=== PATIENT | female | born 1985 | race Caucasian/White ===

== ENCOUNTER 2019-05-31 11:00 | Outpatient (RCR) | payer OTHER, SELFPAY ==
--- NOTE | 2019-05-12 13:21 | PC.NURSE ---
IN 1100 OUT 1155 HISTORY: Pt. delivered at [facility] at 37 weeks. had no complications after delivery. Mother had no complications after delivery. Infant is now 18 days old. Infant appears to be well cared for. Infant has been seen by ICP as scheduled. Infant last seen by ICP at 2 weeks. Mother reports: has required nipple shield since for latching. Mother discharged with small amounts of supplementation, then discontinued when her milk was in. Infant continued to loose weight at 1 week appointment, ICP advised to supplement after each feeding. Mother has a pre and post weight at [facility], intake was 1.5 oz. Infant is sleepy at breast, infant requires a nipple shield for most feedings. Mother will put infant to breast, then supplement and pumps. Mother pumps 1.5-2 oz per session with double electric pump. Mother wishes: To have breastfeed without supplementation and shield. Currently at 6 wets per day and 4 yellow seedy stools per day. weight: 5#8 Discharge weight: 5#1 Last Weight: 5#8 at 2 weeks. Pre feeding weight: 2516 Post feeding weight: 2533 OBSERVATION: Mother attempts to breast in cradle, makes eager attempts to latch and is unable to draw nipple in. Suggested mother used shield for feeding. Reviewed positioning/alignment in cross cradle, holding breast in U hold and guided asymmetrical latch on. Discussed rational for each. was able to latch correctly with nipple shield. . nursed eagerly with steady draws and frequent swallowing noted for short bursts followed with long pausing. Reviewed signs of a correct latch, effective nursing and suck swallow ratio. Advised infant stimulation to keep infant awake and effectively nursing. He would respond to stimulation, infant had long sessions of the short chew suck with bursts of effective draws and swallowing. Discussed the difference of the two sucks and draws are to empty, the short chew maintains the latch with minimal milk transfer. Reviewed that infant was at breast for 35 minutes with more ineffective suckling ( 20+ minutes and waking) than effective (less than 5 minutes). Discussed several ways to increase infant's effectiveness at breast: to wake before feeding, entice suckling with 5-10 mls of bottle before putting to breast, and stimulation while feeding with breast compressions to keep milk flowing. Advised mother is not ready to discontinue supplementation nor nipple shield at this time. Suggested mother give another week and return for pre post evaluation of feeding. Mother will continue to pump after each feeding and limit time at breast to 20-25 minutes. PLAN: Mother will follow above feeding plan using techniques for deeper latch and keeping infant effectively feeding while at breast. Mother will call with further questions or concerns. Follow up visit/phone call scheduled for next . May 17 1099.
--- NOTE | 2019-05-17 10:30 | PC.NURSE ---
Called mother for status update. continues with sleepiness and poor nursing. has not made any progress with increasing effort with . Mother does not believe another apt at this time would change infant feeding status. She continues to put to breast, bottle feed and pump. Mother will call next week.
--- NOTE | 2019-05-31 12:10 | PC.NURSE ---
Pt seen on 05-31-2019 as a follow up visit. IN 1105 OUT 1210 HISTORY: Pt. / seen at 2 weeks for latch issues using the nipple shield and supplementing each feeding. Mother believes infant is more awake and nursing eagerly without shield for most feedings and feels may be ready to stop supplementation of EBM/formula. has been seen by ICP as scheduled. last seen by ICP on 05/23/2019. Mother reports: is eagerly latching most feedings without shield, nursing 15/30 minutes. Mother supplements 1.5-3 oz after of EBM/formula. Mother states she feels is not emptying the breast because he is a sleepy feeder and is anticipating the bottle. If mother does not put to breast he will take 4oz. Mother states each feeding is up to 1.5 hours with breast, supplementation and pumping. Mother wishes: To discontinue pumping and bottle feeding. Currently at 6+ wets per day and 3-4 yellow seedy stools per day. weight: 5#8 Last Weight: 05-23 7#0 Pre feeding weight: 3589 Post feeding weight: 3633 44 g or 1.5 oz. aprox. intake in 30 min. OBSERVATION: Mother is able to independently latch correctly. eagerly latches nursing with long draws and freq swallowing for the first 10 minutes. begins to slow, needing stimulation to keep nursing effectively, occasional swallowing is noted. Mother works with infant on both breasts, repeating the same. Large spit up noted, mother reports spits up freq, at least each feeding. Estimate of at least 15 mls of spit up noted. Mother reports this is not as vigorous feeding as most. Discussed with infant current feeding, he is not ready to discontinue the supplementation after each feeding. Infant intake was 1.5 oz, most of feeding is by supplementation and he will continue to require the calories for continued weight gain and satisfaction. Suggested mother allow to wake for feedings( feeding at least every 4 hours), to work at breast compressions when he slows to assist with increased milk flow which may assist infant with more vigorous suckling. Advised mother to stop with supplement once infant begins to slow and pull away from bottle. Infant again had a large amount of spit up after bottle feeding, of at least 10 mls. PLAN: Mother will follow above feeding plan using techniques for deeper latch, breast compressions to keep infant more vigorously nursing at breast. Mother will call with further questions or concerns.
== END 2019-06-30 10:45 | disposition home or self-care (01) ==
LOC: ANHOBOP 11:00
PROVIDERS: Visit Provider Pediatrics
DX: Z39.1 Encounter for care and examination of lactating mother (principal)
CPT/HCPCS: 99212; G0463

== ENCOUNTER 2020-05-14 14:26 | Outpatient (CLI) | payer OTHER, SELFPAY ==
[2020-05-14 15:12] LABS: Basophils Percent Auto 0.4 % (0.2-1.2); Eosinophils Absolute Auto 0.2 K/mm3 (0-0.3); Eosinophils Percent Auto 2.3 % (0-4.4); Hematocrit 35.9 % (37.0-47.0); Hemoglobin 12.4 g/dL (12.0-15.0); Immature Granulocyte Absolute 0.09 K/mm3 (0.00-0.031); Immature Granulocyte Percent A 0.9 % (0-0.5); Mean Corpuscular HGB Conc 34.5 g/dl (32-36); Mean Corpuscular Hemoglobin 29.7 pg (26-34); Mean Corpuscular Volume 86.1 fl (80-100); Mean Platelet Volume 9.1 fl (7.4-10.4); Monocytes Absolute Auto 0.4 K/mm3 (0.1-0.6); Monocytes Percent Auto 3.8 % (2.6-8.5); Neutrophils Absolute Auto 7.3 K/mm3 (1.3-6.7); Neutrophils Percent Auto 69.6 % (45.5-73.1); Platelet Count Result 349 k/mm3 (150-375); Red Blood Count 4.17 M/mm3 (4.2-5.4); Red Cell Distribution Width 12.7 % (11.5-14.5); White Blood Count 10.4 K/mm3 (4.5-10.0)
[2020-05-14 15:22] LABS: Hemoglobin A1C 5.2 % (<5.7)
[2020-05-14 16:05] LABS: HIV 1/2 Ab P24 Ag Result Negative (Negative)
[2020-05-14 17:08] LABS: Hepatitis C Virus Antibody Negative (Negative)
[2020-05-14 17:17] LABS: Hepatitis B Surface Antigen Negative (Negative); Rubella IgG Antibody 40.8 IU/ML
[2020-05-15 11:03] LABS: Rapid Plasma Reagin Non-Reactive (NonReactive)
== END 2020-05-14 14:27 | disposition home or self-care (01) ==
PROVIDERS: Visit Provider Obstetrics & Gynecology
DX: Z36.89 Encounter for other specified antenatal screening (principal); Z3A.00 Weeks of gestation of pregnancy not specified
CPT/HCPCS: 36415; 83036; 85025; 86592; 86703; 86762; 86803; 86850; 86900; 86901; 87340; G0432

== ENCOUNTER 2020-10-03 10:45 | Outpatient (CLI) | payer OTHER, SELFPAY ==
[2020-10-03 11:16] VITALS: BP 115/79; PULSE 98
[2020-10-03 11:22] VITALS: BP 115/79; PULSE 98
[2020-10-03 11:31] VITALS: BP 108/73; PULSE 97
[2020-10-03 11:32] LABS: Basophils Percent Auto 0.3 % (0.2-1.2); Eosinophils Absolute Auto 0.3 K/mm3 (0-0.3); Eosinophils Percent Auto 2.3 % (0-4.4); Hematocrit 33.6 % (37.0-47.0); Hemoglobin 11.1 g/dL (12.0-15.0); Immature Granulocyte Absolute 0.16 K/mm3 (0.00-0.031); Immature Granulocyte Percent A 1.3 % (0-0.5); Lymphocytes Absolute Auto 2.03 K/mm3 (0.9-3.2); Lymphocytes Percent Auto 16.9 % (18.3-44.2); Mean Corpuscular Hemoglobin 29.4 pg (26-34); Mean Corpuscular Volume 89.1 fl (80-100); Mean Platelet Volume 9.9 fl (7.4-10.4); Monocytes Absolute Auto 0.7 K/mm3 (0.1-0.6); Monocytes Percent Auto 5.8 % (2.6-8.5); Neutrophils Absolute Auto 8.8 K/mm3 (1.3-6.7); Neutrophils Percent Auto 73.4 % (45.5-73.1); Platelet Count Result 278 k/mm3 (150-375); Red Blood Count 3.77 M/mm3 (4.2-5.4); Red Cell Distribution Width 12.9 % (11.5-14.5)
[2020-10-03 11:34] LABS: Add Urine Microscopic? NO; Appearance Urine Clear (Clear); Bilirubin Urine Negative (Negative); Blood Urine Negative (Negative); Color Urine Yellow (Yellow); Glucose Urine UA Negative (Negative); Ketones Urine Negative (Negative); Leukocyte Esterase Ur Negative LEU/UL (NEGATIVE); Nitrate Urine Negative (Negative); Protein Urine Negative (Negative); Specific Grav Ur 1.013 (1.001-1.035); Urobilinogen Urine Negative mg/dL (<2.0)
[2020-10-03 11:39] LABS: Creatinine Urine 72.1 mg/dL; Total Protein Urine Random 14 mg/dL; Ur Ttl Prot Creatinine Ratio 0.19 mg/mg (0-0.20)
[2020-10-03 11:40] LABS: Alanine Aminotransferase 21 U/L (4-35); Albumin Level 3.5 g/dL (3.5-5.1); Alkaline Phosphatase 101 U/L (38-126); Anion Gap 6 mmol/L (8-16); Aspartate Amino Transferase 22 U/L (14-36); Bilirubin,Total < 0.1 mg/dL (0.2-1.3); Blood Urea Nitrogen 13 mg/dL (7-17); Carbon Dioxide 20 mmol/L (22-30); Chloride 109 mmol/L (98-107); Estimated Glomerular Filt Rate > 60; Glucose 86 mg/dL (65-105); Potassium 3.9 mmol/L (3.4-5.0); Sodium 135 mmol/L (137-145); Uric Acid 4.2 mg/dL (2.5-7.5)
[2020-10-03 11:46] VITALS: BP 108/62; PULSE 97
[2020-10-03 12:24] VITALS: BP 115/79
--- NOTE | 2020-10-03 12:38 | PC.NURSE ---
1202- called,read lab results and bp's. Orders received to discharge pt home with 24hr urine
== END 2020-10-03 12:15 | disposition home or self-care (01) ==
LOC: ANHOBOP 10:52 → ANHOBPP 10:52
PROVIDERS: Visit Provider Obstetrics & Gynecology
DX: O13.9 Gestational [pregnancy-induced] hypertension without significant proteinuria, unspecified trimester (principal); Z3A.00 Weeks of gestation of pregnancy not specified
CPT/HCPCS: 36415; 59025; 80053; 81003; 82570; 84156; 84550; 85025; 87086; 99199

== ENCOUNTER 2020-10-04 14:47 | Outpatient (CLI) | payer OTHER, SELFPAY ==
[2020-10-04 15:01] VITALS: BMI 36.6
[2020-10-04 16:00] LABS: Collection Time Urine 24 HOURS; Total Volume 24 Hour Urine 3500 ml
[2020-10-04 16:06] LABS: Patient Weight 200 Lbs; Specific Gravity Ur 1.015
[2020-10-04 16:31] LABS: Creatinine Clearance Urine 153.3 ml/min (75-125); Creatinine Urine 62.5 mg/dL; Total Protein Urine 24 Hr 455 mg/24hr (28-141); Total Protein Urine Random 13 mg/dL
== END 2020-10-04 14:48 | disposition home or self-care (01) ==
PROVIDERS: Visit Provider Obstetrics & Gynecology
DX: O13.9 Gestational [pregnancy-induced] hypertension without significant proteinuria, unspecified trimester (principal); Z3A.00 Weeks of gestation of pregnancy not specified
CPT/HCPCS: 81050; 82575; 84156

== ENCOUNTER 2020-10-05 14:38 | Observation (INO) | payer OTHER, SELFPAY ==
[2020-10-05] VITALS (7 sets, daily range): BP systolic 110–123; BP diastolic 71–86; PULSE 89–98; TEMP 36.7
[2020-10-05 15:23] LABS: Basophils Percent Auto 0.3 % (0.2-1.2); Eosinophils Absolute Auto 0.2 K/mm3 (0-0.3); Hematocrit 33.7 % (37.0-47.0); Hemoglobin 11.1 g/dL (12.0-15.0); Immature Granulocyte Absolute 0.19 K/mm3 (0.00-0.031); Immature Granulocyte Percent A 1.7 % (0-0.5); Lymphocytes Absolute Auto 2.19 K/mm3 (0.9-3.2); Lymphocytes Percent Auto 19.1 % (18.3-44.2); Mean Corpuscular HGB Conc 32.9 g/dl (32-36); Mean Corpuscular Hemoglobin 29.1 pg (26-34); Mean Corpuscular Volume 88.5 fl (80-100); Mean Platelet Volume 9.8 fl (7.4-10.4); Monocytes Absolute Auto 0.7 K/mm3 (0.1-0.6); Neutrophils Absolute Auto 8.1 K/mm3 (1.3-6.7); Neutrophils Percent Auto 70.9 % (45.5-73.1); Platelet Count Result 278 k/mm3 (150-375); Red Blood Count 3.81 M/mm3 (4.2-5.4); Red Cell Distribution Width 12.9 % (11.5-14.5); White Blood Count 11.5 K/mm3 (4.5-10.0)
[2020-10-05 15:35] LABS: Alanine Aminotransferase 20 U/L (4-35); Albumin Level 3.5 g/dL (3.5-5.1); Alkaline Phosphatase 104 U/L (38-126); Anion Gap 7 mmol/L (8-16); Aspartate Amino Transferase 22 U/L (14-36); Bilirubin,Total < 0.1 mg/dL (0.2-1.3); Blood Urea Nitrogen 13 mg/dL (7-17); Calcium 9.6 mg/dL (8.4-10.2); Carbon Dioxide 20 mmol/L (22-30); Chloride 109 mmol/L (98-107); Estimated Glomerular Filt Rate > 60; Glucose 91 mg/dL (65-105); Potassium 3.8 mmol/L (3.4-5.0); Sodium 136 mmol/L (137-145); Uric Acid 3.8 mg/dL (2.5-7.5)
[2020-10-05] MEDS: BETAMETHASONE SOD PHOS/ACETATE 30 MG/5 ML VIAL 12 MG IM (16:06)
--- NOTE | 2020-10-05 16:29 | PM.IMHP ---
H&P: HPI History of Present Illness Date/Time: 10/05/20 16:29 Chief Complaint: pre-eclampsia Narrative: Arlette is a 35yo at 32+ weeks with newly diagnosed PreE on 24 hour urine returned today. 455mg pro. Labs normal 2 days ago. BPs normal or mildly elevated. Denies ALVAREZ/BV/EP. Review of Systems Review of Systems: All systems reviewed & are unremarkable except as noted in HPI and below PMFSH Family History Family History Other No significant family history Social History Social History Smoking status: Never smoker Tobacco type: cigarettes Second hand tobacco smoke exposure: No Additional smoking assessment comments: Social Smoker - Nothing consistent Alcohol intake: never Substance use: never Gender identity (if verbalized by the patient): Female Spiritual care concerns: No Agree to blood products: Yes Meds Home Medications and Allergies Home Medications Medication Instructions Recorded Confirmed Type ibuprofen 600 mg PO Q6H PRN #60 tablet 04/24/19 Rx Allergies Allergy/AdvReac Type Severity Reaction Status Date / Time fexofenadine Allergy Severe Hives / Verified 11/05/18 16:08 Red Face Vital Signs Vital Signs - 24 hr 10/05/20 15:16 10/05/20 15:31 10/05/20 15:46 Pulse Rate 89 94 90 Blood Pressure 123/82 112/86 116/75 10/05/20 16:01 Pulse Rate 92 Blood Pressure 118/77 Exam Const: General: no acute distress Resp: Effort & Inspection: normal respiratory effort Auscultation: clear to auscultation bilaterally Cardio: Rate: regular rate Rhythm: regular rhythm GI: GI Palp: Yes Soft to palpation Extrem: General: normal to inspection H&P: Results Labs Labs: Short CBC 10/05/20 Range/Units 15:04 WBC 11.5 H (4.5-10.0) K/mm3 Hgb 11.1 L (12.0-15.0) g/dL Hct 33.7 L (37.0-47.0) % Plt Count 278 (150-375) k/mm3 BMP 10/05/20 15:04 Sodium 136 L Potassium 3.8 Chloride 109 H Carbon Dioxide 20 L BUN 13 Creatinine 0.60 L Glucose 91 Calcium 9.6 Liver Function 10/05/20 Range/Units 15:04 Total Bilirubin < 0.1 L (0.2-1.3) mg/dL AST 22 (14-36) U/L ALT 20 (4-35) U/L Alkaline Phosphatase 104 (38-126) U/L Albumin 3.5 (3.5-5.1) g/dL Assessment and Plan Additional Plan REassuring status- category 1. Celestone for FLM monitor pressures and symptoms. Repeat PIH labs in am If no features of severe PreE, home on bedrest tomorrow with plan to deliver at 37 or if indicated sooner.
--- NOTE | 2020-10-05 16:45 | PC.NURSE ---
Dr Phillips on unit, plan of care discussed. OK for patient to take her own insulin. Plans to monitor overnight.
--- NOTE | 2020-10-05 19:25 | PC.NURSE ---
Blood sugar called to Dr. Phillips. Will repeat. Pt did get Betamethasone today. Pt advised this can increase blood sugar.
[2020-10-05 19:28] LABS: Glucose Point of Care 182 mg/dl (65-105)
--- NOTE | 2020-10-05 19:45 | OBADM ---
This patient, Arlette Beck, admitted to the OB room OB Post 115 for observation. Patient/family oriented to hospital policies and general routines including ID bracelet, bed and alarms, visiting hours, pain management, procedures, bathroom and other care routines, personal items, smoking policy, room service/diet, and visiting hours. Patient/Family are encouraged to report perceived risks to care and to ask questions if they do not understand what they are told or what they should do.
[2020-10-05 21:12] LABS: Glucose Point of Care 131 mg/dl (65-105)
--- NOTE | 2020-10-05 23:24 | PC.NURSE ---
Pt states she is very tired and is hoping to sleep tonight. Plan of care discussed. Will do NST at 2030 with vital signs and pt instructed to call out if she gets up to void during night to optimize rest.
[2020-10-06] VITALS (16 sets, daily range): BP systolic 102–119; BP diastolic 66–77; PULSE 91–104; RESP 18; TEMP 36.6–36.9; BMI 36.6
[2020-10-06 05:40] LABS: Glucose Point of Care 105 mg/dl (65-105)
[2020-10-06 05:46] LABS: Hematocrit 35.7 % (37.0-47.0); Hemoglobin 11.7 g/dL (12.0-15.0); Mean Corpuscular HGB Conc 32.8 g/dl (32-36); Mean Corpuscular Volume 88.4 fl (80-100); Mean Platelet Volume 9.8 fl (7.4-10.4); Platelet Count Result 308 k/mm3 (150-375); Red Blood Count 4.04 M/mm3 (4.2-5.4); Red Cell Distribution Width 12.8 % (11.5-14.5); White Blood Count 15.7 K/mm3 (4.5-10.0)
[2020-10-06 06:02] LABS: Alanine Aminotransferase 19 U/L (4-35); Albumin Level 3.6 g/dL (3.5-5.1); Alkaline Phosphatase 94 U/L (38-126); Anion Gap 9 mmol/L (8-16); Aspartate Amino Transferase 21 U/L (14-36); Bilirubin,Total 0.2 mg/dL (0.2-1.3); Blood Urea Nitrogen 12 mg/dL (7-17); Calcium 9.5 mg/dL (8.4-10.2); Carbon Dioxide 21 mmol/L (22-30); Chloride 106 mmol/L (98-107); Estimated Glomerular Filt Rate > 60; Glucose 109 mg/dL (65-105); Potassium 4.2 mmol/L (3.4-5.0); Sodium 136 mmol/L (137-145); Uric Acid 4.4 mg/dL (2.5-7.5)
--- NOTE | 2020-10-06 08:11 | PC.NURSE ---
Dr. Phillips was in room and informed pt she is now considered to have preeclampsia. Discussed plan to keep pt today for 1600 dose of Celestone and may go home after that. Pt to monitor BP's at home daily and to call if SBP >160 or DBP > 105. Discussed blood sugars will be more elevated for the next few days due to the Celestone, but to call if BS is >200. - call MFM if it is during office hours. Pt will go home on bedrest except for showering and bathroom use. Pt is to stop working.
[2020-10-06] MEDS: INSULIN ASPART (*BKC) 100 UNITS/ML SUB-Q ×2 (09:00→12:50)
--- NOTE | 2020-10-06 09:36 | PM.OBPNLAB ---
Pain Control Date/time seen: 10/06/20 7125 Comments: mild ALVAREZ that has had for weeks, maybe allergies. BPs great-- all normal. No visual changes. Labs wnl. Sugars elevated moderately, but had celestone at 1600 yesterday, second dose today. Good FM. Status status: Category l Assessment and Plan Assessment: other (mild Pre E at 32+ weeks) Comments: reassuring status celestone #2 at 1600 stable for home on bedrest after second dose PreE precautions given Has twice weekly testing already scheduled with us and MFM. Pt aware BS will be more elevated short term.
--- NOTE | 2020-10-06 09:41 | PM.OBDSVD ---
DS: Admitting Diagnosis Admitting Diagnosis Admitting Diagnosis: PreEclampsia DS: Discharge Diagnosis Discharge Diagnosis (1) Mild preeclampsia: Qualifiers: Trimester: third trimester Qualified Code(s): O14.03 - Mild to moderate pre-eclampsia, third trimester Code(s): O14.00 - Mild to moderate pre-eclampsia, unspecified trimester Status: Acute OB - DS: Summary OB Procedures : NST, PIH Mgmt and Ultrasound OB Procedures Intrapartum: Other (none) OB Procedures: : None Status at Discharge Functional status at discharge: independent ambulation Time Spent with Patient Time attestation: Total time spent providing and/or coordinating discharge services: Time spent: Less than 30 minutes Exam Narrative: Exam Narrative: NAD abdomen soft, appropriately tender Ext non tender, 1+ edema DS: Data Data Completed and Pending Labs on day of discharge: Labs from last 24 hours 10/06/20 10/06/20 10/06/20 05:31 05:25 05:25 WBC 15.7 H RBC 4.04 L Hgb 11.7 L Hct 35.7 L MCV 88.4 MCH 29.0 MCHC 32.8 RDW 12.8 Plt Count 308 MPV 9.8 Immature Gran % (Auto) Neut % (Auto) Lymph % (Auto) [place] % (Auto) Eos % (Auto) Baso % (Auto) Lymph # (Auto) [place] # (Auto) Eos # (Auto) Baso # (Auto) Abs Immat Gran (auto) Absolute Neuts (auto) Absolute Nucleated RBC Nucleated RBC % Sodium 136 L Potassium 4.2 Chloride 106 Carbon Dioxide 21 L Anion Gap 9 BUN 12 Creatinine 0.70 Estim Creat Clear Calc Not Reportable Estimated GFR > 60 Glucose 109 H POC Capillary Glucose 105 Uric Acid 4.4 Calcium 9.5 Total Bilirubin 0.2 AST 21 ALT 19 Alkaline Phosphatase 94 Total Protein 7.0 Albumin 3.6 10/05/20 10/05/20 10/05/20 20:33 19:24 15:04 WBC RBC Hgb Hct MCV MCH MCHC RDW Plt Count MPV Immature Gran % (Auto) Neut % (Auto) Lymph % (Auto) [place] % (Auto) Eos % (Auto) Baso % (Auto) Lymph # (Auto) [place] # (Auto) Eos # (Auto) Baso # (Auto) Abs Immat Gran (auto) Absolute Neuts (auto) Absolute Nucleated RBC Nucleated RBC % Sodium 136 L Potassium 3.8 Chloride 109 H Carbon Dioxide 20 L Anion Gap 7 L BUN 13 Creatinine 0.60 L Estim Creat Clear Calc Not Reportable Estimated GFR > 60 Glucose 91 POC Capillary Glucose 131 H 182 H Uric Acid 3.8 Calcium 9.6 Total Bilirubin < 0.1 L AST 22 ALT 20 Alkaline Phosphatase 104 Total Protein 7.0 Albumin 3.5 10/05/20 15:04 WBC 11.5 H RBC 3.81 L Hgb 11.1 L Hct 33.7 L MCV 88.5 MCH 29.1 MCHC 32.9 RDW 12.9 Plt Count 278 MPV 9.8 Immature Gran % (Auto) 1.7 H Neut % (Auto) 70.9 Lymph % (Auto) 19.1 [place] % (Auto) 6.0 Eos % (Auto) 2.0 Baso % (Auto) 0.3 Lymph # (Auto) 2.19 [place] # (Auto) 0.7 H Eos # (Auto) 0.2 Baso # (Auto) 0.0 Abs Immat Gran (auto) 0.19 H Absolute Neuts (auto) 8.1 H Absolute Nucleated RBC 0.0 Nucleated RBC % 0.0 Sodium Potassium Chloride Carbon Dioxide Anion Gap BUN Creatinine Estim Creat Clear Calc Estimated GFR Glucose POC Capillary Glucose Uric Acid Calcium Total Bilirubin AST ALT Alkaline Phosphatase Total Protein Albumin Discharge Plan Discharge Attending physician on discharge: Lori Phillips Discharging Clinician: Lori Phillips Anticipated Discharge Date/Time: 10/06/20 16:00 Patient Disposition: Home, Self-Care Activity: other - see discharge instructions Diet: gestational diabetic Discharge Instructions: Modified bed rest, should stop working. Patient Instructions: Antibiotic Form Stand Alone Forms: General Discharge Information Follow-up/Referrals: Lori Phillips MD [Physician] - (3 days) Discharge Medications: Continued aspirin 81 mg tablet,delayed release (DR/EC) 16
[2020-10-06 10:10] LABS: Glucose Point of Care 149 mg/dl (65-105)
--- NOTE | 2020-10-06 10:52 | PHAR ---
The patient's home meds of Humalog Kwikpen and Levemir flextouch pen have been verified.
[2020-10-06 14:10] LABS: Glucose Point of Care 96 mg/dl (65-105)
[2020-10-06] MEDS: ACETAMINOPHEN 500 MG TABLET 1000 MG PO (15:02)
[2020-10-06] MEDS: BETAMETHASONE SOD PHOS/ACETATE 30 MG/5 ML VIAL 12 MG IM (16:03)
--- NOTE | 2020-10-06 16:14 | PC.NURSE ---
Pt waiting in room for her to come pick her up.
== END 2020-10-06 16:25 | disposition home or self-care (01) ==
PROVIDERS: Admitting Provider Obstetrics & Gynecology; Visit Provider Obstetrics & Gynecology
DX: O14.03 Mild to moderate pre-eclampsia, third trimester (principal); Z3A.32 32 weeks gestation of pregnancy
CPT/HCPCS: 36415; 59025; 80053; 82948; 84550; 85025; 85027; 96372; A9270; G0378; G0379; J0702; J1815

== ENCOUNTER 2020-10-08 16:11 | Observation (INO) | payer OTHER, SELFPAY ==
[2020-10-08 16:40] VITALS: BMI 36.6
[2020-10-08 17:04] VITALS: BP 121/72; PULSE 93
[2020-10-08 17:16] VITALS: BP 121/72; PULSE 95
[2020-10-08 17:31] VITALS: BP 113/63; PULSE 98
[2020-10-08 17:38] LABS: Fetal Fibronectin Negative
[2020-10-08 17:46] VITALS: BP 113/66; PULSE 91
[2020-10-08 18:00] VITALS: TEMP 36.6
[2020-10-08 18:01] VITALS: BP 120/72; PULSE 94
--- NOTE | 2020-10-23 13:39 | PM.OBTRLD ---
OB - Triage/Final Diagnosis Visit Information Comments/Additional reasons for admission: I have assessed the risk for this patient, Arlette E Suiter, and determined that she would benefit from observation care. Evaluation Laboratory results: Laboratory Tests 10/08/20 16:48 Fibronectin Negative Final Diagnosis (1) False labor: Code(s): O47.9 - False labor, unspecified Status: Acute
== END 2020-10-08 18:34 | disposition home or self-care (01) ==
PROVIDERS: Advanced Practice Midwife; Admitting Provider Obstetrics & Gynecology; Visit Provider Obstetrics & Gynecology
DX: O47.03 False labor before 37 completed weeks of gestation, third trimester (principal); Z3A.33 33 weeks gestation of pregnancy
CPT/HCPCS: 82731; G0378; G0379

== ENCOUNTER 2020-10-15 22:25 | Outpatient (CLI) | payer OTHER, SELFPAY ==
[2020-10-15 23:15] VITALS: BP 124/85; PULSE 102
--- NOTE | 2020-10-15 23:20 | OBADM ---
This patient, Arlette Mclaughlinr, admitted to the OB room 112 for HIP evaluation Patient/family oriented to hospital policies and general routines including ID bracelet, bed and alarms, visiting hours, pain management, procedures, bathroom and other care routines, personal items, smoking policy, room service/diet, and visiting hours.
[2020-10-15 23:30] VITALS: BP 100/58; PULSE 97
[2020-10-15 23:33] LABS: Basophils Percent Auto 0.3 % (0.2-1.2); Eosinophils Absolute Auto 0.3 K/mm3 (0-0.3); Eosinophils Percent Auto 2.6 % (0-4.4); Hematocrit 34.9 % (37.0-47.0); Hemoglobin 11.4 g/dL (12.0-15.0); Immature Granulocyte Absolute 0.12 K/mm3 (0.00-0.031); Immature Granulocyte Percent A 1.1 % (0-0.5); Lymphocytes Absolute Auto 2.97 K/mm3 (0.9-3.2); Lymphocytes Percent Auto 26.4 % (18.3-44.2); Mean Corpuscular HGB Conc 32.7 g/dl (32-36); Mean Corpuscular Hemoglobin 29.1 pg (26-34); Mean Platelet Volume 9.7 fl (7.4-10.4); Monocytes Absolute Auto 0.8 K/mm3 (0.1-0.6); Monocytes Percent Auto 6.9 % (2.6-8.5); Neutrophils Absolute Auto 7.1 K/mm3 (1.3-6.7); Neutrophils Percent Auto 62.7 % (45.5-73.1); Platelet Count Result 272 k/mm3 (150-375); Red Blood Count 3.92 M/mm3 (4.2-5.4); Red Cell Distribution Width 12.9 % (11.5-14.5); White Blood Count 11.2 K/mm3 (4.5-10.0)
[2020-10-15 23:41] LABS: Alanine Aminotransferase 19 U/L (4-35); Albumin Level 3.4 g/dL (3.5-5.1); Alkaline Phosphatase 122 U/L (38-126); Anion Gap 8 mmol/L (8-16); Aspartate Amino Transferase 21 U/L (14-36); Bilirubin,Total < 0.1 mg/dL (0.2-1.3); Blood Urea Nitrogen 13 mg/dL (7-17); Calcium 9.3 mg/dL (8.4-10.2); Carbon Dioxide 20 mmol/L (22-30); Chloride 106 mmol/L (98-107); Estimated Glomerular Filt Rate > 60; Glucose 88 mg/dL (65-105); Potassium 3.6 mmol/L (3.4-5.0); Sodium 134 mmol/L (137-145); Uric Acid 4.4 mg/dL (2.5-7.5)
[2020-10-16] VITALS: BP 102/59; PULSE 88
== END 2020-10-16 00:05 | disposition home or self-care (01) ==
LOC: ANHOBOP 23:06 → ANHOBPP 23:08
PROVIDERS: Obstetrics & Gynecology; Visit Provider Obstetrics & Gynecology
DX: O13.9 Gestational [pregnancy-induced] hypertension without significant proteinuria, unspecified trimester (principal); Z3A.00 Weeks of gestation of pregnancy not specified
CPT/HCPCS: 36415; 59025; 80053; 84550; 85025; 99199

== ENCOUNTER 2020-10-19 15:19 | Outpatient (RCR) | payer OTHER, SELFPAY ==
[2020-10-19 16:41] VITALS: BP 114/77; PULSE 100
== END 2020-11-07 08:15 | disposition home or self-care (01) ==
LOC: ANHOBOP 15:19
PROVIDERS: Visit Provider Obstetrics & Gynecology
DX: O26.893 Other specified pregnancy related conditions, third trimester (principal); Z3A.34 34 weeks gestation of pregnancy
CPT/HCPCS: 59025

== ENCOUNTER 2020-11-05 16:44 | Inpatient (IN) | payer OTHER, SELFPAY ==
[2020-11-05] VITALS (16 sets, daily range): BP systolic 116–137; BP diastolic 61–90; PULSE 89–110; RESP 18; TEMP 36.5–36.6; BMI 36.8
[2020-11-05 17:28] LABS: Basophils Percent Auto 0.3 % (0.2-1.2); Eosinophils Absolute Auto 0.3 K/mm3 (0-0.3); Eosinophils Percent Auto 2.3 % (0-4.4); Hematocrit 37.4 % (37.0-47.0); Hemoglobin 12.5 g/dL (12.0-15.0); Immature Granulocyte Absolute 0.19 K/mm3 (0.00-0.031); Immature Granulocyte Percent A 1.7 % (0-0.5); Lymphocytes Absolute Auto 2.72 K/mm3 (0.9-3.2); Lymphocytes Percent Auto 23.6 % (18.3-44.2); Mean Corpuscular HGB Conc 33.4 g/dl (32-36); Mean Corpuscular Hemoglobin 29.3 pg (26-34); Mean Corpuscular Volume 87.8 fl (80-100); Mean Platelet Volume 9.9 fl (7.4-10.4); Monocytes Absolute Auto 0.7 K/mm3 (0.1-0.6); Monocytes Percent Auto 5.9 % (2.6-8.5); Neutrophils Absolute Auto 7.6 K/mm3 (1.3-6.7); Neutrophils Percent Auto 66.2 % (45.5-73.1); Platelet Count Result 321 k/mm3 (150-375); Red Blood Count 4.26 M/mm3 (4.2-5.4); Red Cell Distribution Width 13.3 % (11.5-14.5); White Blood Count 11.5 K/mm3 (4.5-10.0)
[2020-11-05 17:28] LABS: Glucose Point of Care 91 mg/dl (65-105)
--- NOTE | 2020-11-05 17:42 | P.HP_ITS ---
H&P: HPI History of Present Illness Date/Time: 11/05/20 17:42 Chief Complaint: late decels on NST Narrative: Arlette is a 35yo at 37.0 for IOL due to repetitive late decels on NST at [facility] today. GDMA2, sugars managed by [facility]. Good FM, now NST reactive, category 1. Review of Systems Review of Systems: All systems reviewed & are unremarkable except as noted in HPI and below PMFSH Family History Family History Other No significant family history Social History Social History Smoking status: Never smoker Tobacco type: cigarettes Second hand tobacco smoke exposure: No Additional smoking assessment comments: Social Smoker - Nothing consistent Alcohol intake: never Substance use: never Gender identity (if verbalized by the patient): Female Spiritual care concerns: No Agree to blood products: Yes Meds Home Medications and Allergies Home Medications Medication Instructions Recorded Confirmed Type Levemir FlexTouch U-100 Insuln 10 unit SUBCUT QAM 10/05/20 10/26/20 History Levemir FlexTouch U-100 Insuln 52 unit SUBCUT HS 10/05/20 10/26/20 History aspirin 162 mg PO DAILY 10/05/20 10/26/20 History insulin lispro [Humalog KwikPen See Rx Instructions .ROUTE .COMPLEX 10/05/20 10/26/20 History Insulin] loratadine [Claritin] 10 mg PO DAILY 10/05/20 10/26/20 History Allergies Allergy/AdvReac Type Severity Reaction Status Date / Time fexofenadine Allergy Severe Hives / Verified 11/05/18 16:08 Red Face Vital Signs Vital Signs - 24 hr 11/05/20 17:10 11/05/20 17:30 Pulse Rate 99 96 Blood Pressure 131/90 137/86 Exam Const: General: no acute distress Resp: Effort & Inspection: normal respiratory effort Auscultation: clear to auscultation bilaterally Cardio: Rate: regular rate Rhythm: regular rhythm GI: GI Palp: Yes Soft to palpation Extrem: General: normal to inspection H&P: Results Labs Labs: Short CBC 11/05/20 Range/Units 17:11 WBC 11.5 H (4.5-10.0) K/mm3 Hgb 12.5 (12.0-15.0) g/dL Hct 37.4 (37.0-47.0) % Plt Count 321 (150-375) k/mm3 Assessment and Plan Assessment and plan (1) GDM, class A2: Code(s): O24.419 - Gestational diabetes mellitus in , unspecified control Status: Acute (2) Late deceleration of heart rate: Code(s): O36.8390 - Maternal care for abnormalities of the heart rate or rhythm, unspecified trimester, not applicable or unspecified Status: Acute Additional Plan induction, medical for decels, GDMA2 cervidil, cervix 1cm category 1 FHT currently. Pt aware increased chance baby won't tolerate labor, T and S done.
--- NOTE | 2020-11-05 18:17 | LDADM ---
This patient, Arlette Beck, was admitted to Labor/Delivery/Recovery 108 on 11/05/20 at 16:44. Plans for labor, pain management and were discussed with patient. Patient/family oriented to hospital policies and general routines including ID bracelet, bed and alarms, visiting hours, pain management, procedures, bathroom and other care routines, personal items, smoking policy, room service/diet and guest tray routines, security routines, and visiting hours. Patient/Family are encouraged to report perceived risks to care and to ask questions if they do not understand what they are told or what they should do. See OBIX for further documentation.
[2020-11-05] MEDS: DINOPROSTONE 10 MG VAG INSERT VAGINAL (18:35)
--- NOTE | 2020-11-05 18:36 | WPDANESEPP ---
Anes - Eval Pre Procedure Procedure: Labor epidural Date/Time: 11/05/20 18:36 Surgeon: Jacqueline Preop Diagnosis: Abd pain with contractions Pre Op Diagnosis: IOL Patient Data Age: 35 Gender: F Height: 1.57 m Weight: 91.36 kg Last Vital Signs Pulse 94 11/05/20 18:15 BP 119/79 11/05/20 18:15 Allergies Allergy/AdvReac Type Severity Reaction Status Date / Time fexofenadine Allergy Severe Hives / Verified 11/05/18 16:08 Red Face Home Medications Medication Instructions Recorded Confirmed Type Levemir FlexTouch U-100 Insuln 10 unit SUBCUT QAM 10/05/20 10/26/20 History Levemir FlexTouch U-100 Insuln 52 unit SUBCUT HS 10/05/20 10/26/20 History aspirin 162 mg PO DAILY 10/05/20 10/26/20 History insulin lispro [Humalog KwikPen See Rx Instructions .ROUTE .COMPLEX 10/05/20 10/26/20 History Insulin] loratadine [Claritin] 10 mg PO DAILY 10/05/20 10/26/20 History Laboratory Tests 11/05/20 11/05/20 11/05/20 17:11 17:11 17:11 WBC 11.5 K/mm3 H K/mm3 (4.5-10.0) RBC 4.26 M/mm3 M/mm3 (4.2-5.4) Hgb 12.5 g/dL g/dL (12.0-15.0) Hct 37.4 % % (37.0-47.0) MCV 87.8 fl fl (80-100) MCH 29.3 pg pg (26-34) MCHC 33.4 g/dl g/dl (32-36) RDW 13.3 % % (11.5-14.5) Plt Count 321 k/mm3 k/mm3 (150-375) MPV 9.9 fl fl (7.4-10.4) Immature Gran % (Auto) 1.7 % H % (0-0.5) Neut % (Auto) 66.2 % % (45.5-73.1) Lymph % (Auto) 23.6 % % (18.3-44.2) [place] % (Auto) 5.9 % % (2.6-8.5) Eos % (Auto) 2.3 % % (0-4.4) Baso % (Auto) 0.3 % % (0.2-1.2) Lymph # (Auto) 2.72 K/mm3 K/mm3 (0.9-3.2) [place] # (Auto) 0.7 K/mm3 H K/mm3 (0.1-0.6) Eos # (Auto) 0.3 K/mm3 K/mm3 (0-0.3) Baso # (Auto) 0.0 K/mm3 K/mm3 (0.0-0.1) Abs Immat Gran (auto) 0.19 K/mm3 H K/mm3 (0.00-0.031) Absolute Neuts (auto) 7.6 K/mm3 H K/mm3 (1.3-6.7) Absolute Nucleated RBC 0.0 K/mm3 K/mm3 (0.0-0.012) Nucleated RBC % 0.0 % % (0.0-0.2) POC Capillary Glucose RPR Pending Blood Type O Positive Antibody Screen Negative 11/05/20 17:23 WBC RBC Hgb Hct MCV MCH MCHC RDW Plt Count MPV Immature Gran % (Auto) Neut % (Auto) Lymph % (Auto) [place] % (Auto) Eos % (Auto) Baso % (Auto) Lymph # (Auto) [place] # (Auto) Eos # (Auto) Baso # (Auto) Abs Immat Gran (auto) Absolute Neuts (auto) Absolute Nucleated RBC Nucleated RBC % POC Capillary Glucose 91 mg/dl mg/dl (65-105) RPR Blood Type Antibody Screen Patient hx anesthesia problems: none Family hx anesthesia problems: none 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 Obesity Smoker Family History Family History Other No significant family history Social History Social History Smoking status: Former smoker Tobacco type: cigarettes Second hand tobacco smoke exposure: No Additional smoking assessment comments: Social Smoker - Nothing consistent Alcohol intake: never Substance use: never Gender identity (if verbalized by the patient): Female Spiritual care concerns: No Agree to blood products: Yes Exam Day of Procedure 11/05/20 18:36 Patient weight: obese Airway: Mallampati scale class II Neurological: alert and oriented
[2020-11-05] MEDS: INSULIN ASPART (*BKC) 100 UNITS/ML SUB-Q (19:40)
[2020-11-05 19:48] LABS: Glucose Point of Care 82 mg/dl (65-105)
[2020-11-05] MEDS: INSULIN DETEMIR 100 UNITS/ML 40 UNITS SUB-Q (20:54)
[2020-11-05 21:01] LABS: Glucose Point of Care 135 mg/dl (65-105)
[2020-11-05] MEDS: ACETAMINOPHEN 500 MG TABLET 1000 MG PO (22:01)
[2020-11-06] VITALS (94 sets, daily range): BP systolic 97–154; BP diastolic 51–96; PULSE 54–120; RESP 16–18; TEMP 36.3–36.9; O2SAT 83–100
[2020-11-06] MEDS: fentaNYL CITRATE INJ (*CRX) 100 MCG/2 ML VIAL 50 MCG IV PUSH ×2 (02:24→03:33)
[2020-11-06] MEDS: LACTATED RINGERS 1,000 ML 125 ML IV CONT ×2 (03:28→04:18)
[2020-11-06 04:36] LABS: Glucose Point of Care 94 mg/dl (65-105)
[2020-11-06 05:38] LABS: Glucose Point of Care 95 mg/dl (65-105)
--- NOTE | 2020-11-06 09:08 | P.PCNOB_ITS ---
OB - Delivery Note Procedure Delivery date: 11/06/20 Procedure: events: Gestational Diabetes, Labor Induction and Polyhydramnios Induction method: AROM and per cervidil protocol Delivery monitor: external FHT and external uterine Route of delivery: Episiotomy description: None Laceration Description: Perineal - 2nd Degree Delivery repair: vicryl Quantitative Blood Loss (ml): 400 Anesthesia type: Epidural Disposition: floor Narrative: With adequate expulsive efforts by the mother, the baby's head was delivered OA with copious amounts of fluid. The baby's anterior shoulder was de livered under the pubic symphysis without difficulty. The posterior shoulder and the rest of the baby delivered without difficulty. The infant was placed on the mothers chest and suctioned and stimulated. The cord was clamped and cut after 30 seconds. Mother and baby both stable. Baby Date of : 11/06/20 Time of : 08:51 Weeks of gestation at delivery: 37 gender: Male Weight (pounds): 6 Weight (ounces): 12 presentation: vertex Placenta delivery description: Spontaneous cord vessel description: 3 Vessels, Nuchal Cord and Delayed Cord Clamping score one minute: 7 score five minutes: 8
[2020-11-06] MEDS: OXYTOCIN 30 UNITS/NS 500 ML 30 UNITS/500 ML BAG 125 UNITS IV CONT (09:30)
[2020-11-06 10:05] LABS: Rapid Plasma Reagin Non-Reactive (NonReactive)
[2020-11-06] MEDS: BENZOCAINE 20% AER SPR (*SP) 56 GM CAN 1 SPRAY TOPICAL (11:04)
[2020-11-06] MEDS: WITCH HAZEL 40 PADS 1 PAD TOPICAL (11:04)
[2020-11-06] MEDS: IBUPROFEN 600 MG TABLET PO ×3 (11:05→23:25)
--- NOTE | 2020-11-06 11:33 | OBPPTRN ---
Patient transferred to post room # 282 via wheelchair. Support person present. Oriented to unit, room, information board, rooming in, admission packet and security measures. Patient verbalizes understanding. PT received instructions per one to one discussion, mom baby care guide and demonstrations and will receive such instructions per shift. Pt has no barriers to learning identified at this time and PT and spouse both recipients of instructions.
[2020-11-06] MEDS: ACETAMINOPHEN 325 MG TABLET 650 MG PO (14:38)
--- NOTE | 2020-11-06 15:25 | PC.NURSE ---
Mother called out for assist with feeding. Mother reported first two feeding infant was eager. Mother had issues latching with first child. First child was also 37 weeks, reviewed early infants and establishing . Infant is able to freely thrust tongue past gum ridge and flange both lips. Skin is intact on both nipples, no redness and bruising noted. Reviewed feeding cues, frequencies, duration of feedings, feeding elimination flow sheet, and signs of adequate intake. Demonstrated stimulation techniques to wake for feeding. Assisted with to breast. Reviewed positioning/alignment in football, holding breast in ?C? hold and guided asymmetrical latch on. Discussed rational for each. Infant able to latch correctly. nursed eagerly, with steady draws and frequent swallowing noted. Suggested mother stimulate while feeding to increase stimulate, increase intake and to assist with maintaining deep latch. Reviewed signs of a correct latch, effective nursing and suck swallow ratio. was able to maintain latch without discomfort to mother. Demonstrated how to adjust latch more deeply while feeding. Nipple care reviewed of lanolin after feedings, warm compresses as needed. Instructed mother to call out for RN assistance if she is unable to latch infant for feeding or she has discomfort with nursing.
[2020-11-06] MEDS: DOCUSATE SODIUM 100 MG CAPSULE PO (17:22)
[2020-11-06] MEDS: POLYSACCHARIDE IRON COMPLEX 150 MG CAPSULE PO (17:22)
[2020-11-06] MEDS: LANOLIN (LANSINOH) 7.5 GM CREAM 1 APPLIC TOPICAL (17:24)
[2020-11-07] VITALS (7 sets, daily range): BP systolic 105–120; BP diastolic 59–79; PULSE 88–98; RESP 16–18; TEMP 36.6–37.1; O2SAT 97–98
[2020-11-07] MEDS: ACETAMINOPHEN 325 MG TABLET 650 MG PO ×5 (01:45→23:57)
[2020-11-07 05:59] LABS: Hematocrit 33.1 % (37.0-47.0); Hemoglobin 10.8 g/dL (12.0-15.0)
--- NOTE | 2020-11-07 07:37 | PM.OBPNVD ---
OB - PN: Subj Subjective Date/time seen: 11/07/20 07:37 OB - PN: Obj Data Labs CBC & Chem 7: 11/07/20 05:19 Labs: Laboratory Results - last 24 hr 11/05/20 11/07/20 17:11 05:19 Hgb 10.8 L Hct 33.1 L RPR Non-reactive OB - PN A/P Plan day: 1 Plan: routine care Time Spent With Patient Time: Total time spent is greater than 50% in coordination of care (as documented) at patient's floor/unit and/or counseling patient: Review of Systems Review of Systems: All systems reviewed & are unremarkable except as noted in HPI and below Exam Const: General: cooperative Nutritional Appearance: average body habitus Limitations: no limitations
--- NOTE | 2020-11-07 07:45 | PC.NURSE ---
PT introductions made and plan of care discussed per post , pain management, breast feeding and supplementing, daily care activities. PT verbalized understanding of such care. PT receiving instructions per shift via one to one discussion, mom baby care guide and demonstration. PT and spouse both recipients of such instructions and no barriers to learning identified.
--- NOTE | 2020-11-07 07:49 | WPDANLDPN2 ---
Anes-Prog Note L&D Date/Time: 11/07/20 07:49 Comfortable throughout: labor and delivery Neuraxial method: epidural Epidural/Spinal procedure site: clean & non-tender Neuro status: Neuro function grossly intact. Cardiovascular status: normal Respiratory status: normal Airway patency: baseline Mental status: baseline Post-Op hydration status: normal Vital Signs: Last Vital Signs Temp 36.6 C 11/07/20 04:30 Pulse 96 11/07/20 04:30 Resp 18 11/07/20 04:30 BP 107/66 11/07/20 04:30 Pulse Ox 97 11/06/20 17:00 Pain score (VAS): 0 I/O: Intake & Output 11/06/20 11/06/20 11/07/20 15:59 23:59 07:59 Intake Total 745 736 3879 Output Total 700 2800 Balance 700 100 -800 Post-procedural complaints: none Patient feedback: Patient satisfied with anesthetic care.
[2020-11-07] MEDS: IBUPROFEN 600 MG TABLET PO ×3 (09:19→23:57)
[2020-11-07] MEDS: MULTIVIT/MIN/PREN/FOL AC/IRON TABLET 1 TAB PO (09:19)
[2020-11-07] MEDS: DOCUSATE SODIUM 100 MG CAPSULE PO ×2 (09:19→17:36)
--- NOTE | 2020-11-07 14:20 | PC.NURSE ---
Mother called out for assist with feeding, reporting tenderness during entire feeding. Skin is intact on both nipples no redness noted. Mother is using lanolin and gel pads. Reviewed infant feeding cues, frequencies, duration of feedings, feeding elimination flow sheet, and signs of adequate intake. Demonstrated stimulation techniques to wake for feeding. Assisted with to breast. Reviewed positioning/alignment in football, holding breast in ?C? hold and guided asymmetrical latch on. Discussed rational for each. Infant able to latch deeply with bottom lip rolled in. Demonstrated how to roll lip out while feeding. Infant nursed eagerly, with steady draws and occasional swallowing noted followed with long pausing. Suggested mother stimulate while feeding to increase stimulate, increase intake and to assist with maintaining deep latch. Reviewed signs of a correct latch, effective nursing and suck swallow ratio. Infant would slip to shallow latch, mother reports tenderness. Demonstrated how to adjust latch more deeply while feeding. Mother reports she can feel change in latch and has no tenderness. Mother questioned if she needed to continue to supplement after each feeding. Suggested mother offer supplement if infant does not appear satisfied after 20 minutes of nursing. Instructed mother to call out for RN assistance if she is unable to latch for feeding or she has discomfort with nursing.
[2020-11-08 04:00] VITALS: BP 125/75; PULSE 94; RESP 18; TEMP 37.1
[2020-11-08] MEDS: ACETAMINOPHEN 325 MG TABLET 650 MG PO ×2 (05:34→12:11)
[2020-11-08] MEDS: IBUPROFEN 600 MG TABLET PO ×2 (05:39→12:11)
--- NOTE | 2020-11-08 08:03 | PM.OBPNVD ---
OB - PN: Subj Subjective Date/time seen: 11/08/20 08:03 Patient comments: no complaints baby status: doing well OB - PN: Obj Data Labs CBC & Chem 7: 11/07/20 05:19 OB - PN A/P Plan day: 2 Plan: routine care and discharge home (F/U in 1 week for bp check) Comments: Plan 2 hour gtt at aprox 2 months post . Pt aware. Time Spent With Patient Time: Total time spent is greater than 50% in coordination of care (as documented) at patient's floor/unit and/or counseling patient: Time with patient: less than 15 minutes Review of Systems Review of Systems: All systems reviewed & are unremarkable except as noted in HPI and below Exam Narrative: Fundus firm and vaginal flow controlled. No lower ext redness, warmth, or edema. Negative homans. Denies h/a, v/d or e/p. Reflexes normal. Const: General: comfortable Chest: Breast/axilla inspection: normal inspection of the breasts Resp: Effort & Inspection: normal respiratory effort Cardio: Rate: regular rate GI: GI Palp: Yes Soft to palpation Psych: Appearance: grossly normal Affect: normal affect Attitude: cooperative Thought content: Yes Normal thought content present Judgement: Good judgement present (Psych)
--- NOTE | 2020-11-08 08:04 | PM.OBDSVD ---
DS: Admitting Diagnosis Admitting Diagnosis Induction of labor OB - DS: Summary OB Procedures : None OB Procedures Intrapartum: Spontaneous Vag Delivery OB Procedures: : None Time Spent with Patient Time attestation: Total time spent providing and/or coordinating discharge services: DS: Data Data Completed and Pending Pending studies at discharge: Pending at discharge 11/06/20 08:56 Surgical [PTH] Routine Discharge Plan Discharge Attending physician on discharge: Lori Phillips Discharging Clinician: Astrid Boss Patient Disposition: Home, Self-Care Activity: pelvic rest Diet: as tolerated Patient Instructions: Antibiotic Form Stand Alone Forms: General Discharge Information Follow-up/Referrals: Lori Phillips MD [Physician] - Discharge Medications: Discontinued aspirin 81 mg tablet,delayed release (DR/EC) 162 mg PO DAILY RF: 0 loratadine [Claritin] 10 mg Tablet 10 mg PO DAILY RF: 0 insulin lispro [Humalog KwikPen Insulin] 100 unit/mL insulin pen See Rx Instructions .ROUTE .COMPLEX RF: 0 Levemir FlexTouch U-100 Insuln 100 unit/mL (3 mL) insulin pen 10 unit SUBCUT QAM RF: 0 Levemir FlexTouch U-100 Insuln 100 unit/mL (3 mL) insulin pen 52 unit SUBCUT HS RF: 0 Date of admission: 11/05/20 16:44 Primary Care Provider: PHYSICIAN,[facility] [employer] Admitting Provider: Lori Phillips Attending physician on admission: Lori Phillips Condition: Stable
[2020-11-08 08:55] VITALS: BP 128/86; PULSE 87; RESP 18; TEMP 37.3; O2SAT 97
[2020-11-08] MEDS: MULTIVIT/MIN/PREN/FOL AC/IRON TABLET 1 TAB PO (12:12)
--- NOTE | 2020-11-08 20:29 | PC.NURSE ---
1210 discharge papers reviewed with parents; they stated they read through the papers.
--- NOTE | 2020-11-08 20:34 | PC.NURSE ---
Pt's outcomes should be documented at the time of her discharge today at [id number]
[2020-11-10 10:49] VITALS: BP 123/79; PULSE 88; RESP 20; TEMP 37.3; O2SAT 100
== END 2020-11-08 12:22 | disposition home or self-care (01) | DRG 807 ==
LOC: ANHLDR 17:09 → ANHOB2 11-06 11:35
PROVIDERS: Admitting Provider Obstetrics & Gynecology; Visit Provider Obstetrics & Gynecology
DX: O36.8330 Maternal care for abnormalities of the fetal heart rate or rhythm, third trimester, not applicable or unspecified (principal); Z37.0 Single live birth; Z3A.37 37 weeks gestation of pregnancy; O24.429 Gestational diabetes mellitus in childbirth, unspecified control; O99.214 Obesity complicating childbirth; E66.9 Obesity, unspecified; O40.3XX0 Polyhydramnios, third trimester, not applicable or unspecified; O70.1 Second degree perineal laceration during delivery; O13.4 Gestational [pregnancy-induced] hypertension without significant proteinuria, complicating childbirth
CPT/HCPCS: 36415; 82948; 85014; 85018; 85025; 86592; 86850; 86900; 86901; 88307; A9270; J1815; J2590; J2795; J3010; J7120

== ENCOUNTER 2021-09-09 11:15 | Emergency (ER) | payer OTHER, SELFPAY ==
[2021-09-09 11:25] VITALS: BP 128/93; PULSE 94; RESP 20; TEMP 36.4; O2SAT 100
--- NOTE | 2021-09-09 11:29 | ED.ALLEREA ---
HPI - Allergic Reaction General Chief complaint: Allergic Reaction Stated complaint: allergic reaction to insect sting Time Seen by Provider: 09/09/21 11:20 Source: patient Mode of arrival: ambulatory Limitations: no limitations History of Present Illness HPI narrative: 36-year-old female presents with complaint of bee sting to left hand. Reports left hand swelling with hives traveling up left arm into neck and chest. Denies shortness of breath, no difficulty breathing. No history of similar allergic reaction to bee sting. Reports that she has bases and has her own honey. Has been stung before with no complications. Did take 50 mg of Benadryl prior to arrival. Ambulatory with steady gait. Reports that she is feeling nervous. All systems reviewed and negative except as noted above. Related Data Home Medications Medication Instructions Recorded Confirmed vits no.126-ferrous fum 1 tablet PO DAILY 09/09/21 09/09/21 28 mg iron-folic acid 800 mcg tablet (Classic ) Allergies Allergy/AdvReac Type Severity Reaction Status Date / Time fexofenadine Allergy Severe Hives / Verified 09/09/21 11:30 Red Face bee pollen AdvReac Intermediate Hives Verified 09/09/21 14:05 Review of Systems Review of Systems: CONSTITUTIONAL: Denies fever, chills, or sweats. EYES: Denies visual changes, redness, or discharge. ENT: Denies rhinorrhea, congestion, sore throat, or otalgia. CARDIOVASCULAR: Denies chest pain, palpitations, or edema. RESPIRATORY: Denies cough or dyspnea. GASTROINTESTINAL: Denies abdominal pain, nausea, vomiting, or diarrhea. GENITOURINARY: Denies dysuria or hematuria. SKIN: Denies rash or itching. Hives to left arm neck and chest, swelling and erythema to left hand. MUSCULOSKELETAL: Denies back pain, joint pain, or myalgia. NEUROLOGIC: Denies headache, numbness, or weakness. PSYCHIATRIC: Denies anxiety or depression. All other systems reviewed are negative, except as documented in HPI. 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 There is no relevant family history pertinent to the presenting complaint. Exam Narrative: GENERAL: This is a well-nourished, well-developed patient, in no apparent distress. HEAD: normocephalic, atraumatic. EYES: PERRL. Sclera clear/white. Vision is grossly intact. EARS: External ears normal NOSE: External nose normal NECK: Neck supple, non-tender without lymphadenopathy, masses or thyromegaly. CARDIOVASCULAR: Regular rate and rhythm without murmurs, gallops, or rubs. RESPIRATORY: Clear to auscultation. Breath sounds equal bilaterally. No wheezes, rales, or rhonchi. SKIN: warm, Dry, intact with no suspicious lesions, good texture and turgor. Erythema and swelling to left hand. Erythematous hives to the left arm chest and neck. NEURO: awake, alert, and oriented to person, place and time. There were no obvious focal neurologic abnormalities. EXTREMITIES: Normal range of motion to all extremities. Course Course Level of Care: Express Care Visit Vital Signs Vital signs: Vital Signs Temperature 36.4 C 09/09/21 11:25 Pulse Rate 94 09/09/21 11:25 Respiratory Rate 20 09/09/21 11:25 Blood Pressure 128/93 H 09/09/21 11:25 Pulse Oxi
[2021-09-09] MEDS: FAMOTIDINE 20 MG TABLET 40 MG PO (11:30)
== END 2021-09-09 11:58 | disposition home or self-care (01) ==
PROVIDERS: Emergency Provider Nurse Practitioner Family
DX: T63.441A Toxic effect of venom of bees, accidental (unintentional), initial encounter (principal); E66.9 Obesity, unspecified; Z68.27 Body mass index [BMI] 27.0-27.9, adult
CPT/HCPCS: 96372; 99213; A9270; G0463; J2930

== ENCOUNTER 2023-05-18 16:39 | Emergency (ER) | payer OTHER, SELFPAY ==
--- NOTE | 2023-05-18 16:45 | ED.URI ---
HPI - URI/Sore Throat General Chief Complaint: Upper Respiratory Infection Stated Complaint: Sore Throat, Headache, Bodyache Time Seen by Provider: 05/18/23 16:42 Source: patient Mode of arrival: ambulatory Limitations: no limitations History of Present Illness HPI Narrative: Arlette is a 37-year-old female patient presenting to the clinic today with complaints of sore throat, headache, nausea, feeling feverish, and body aches since last night. States she does have a slight cough. MD elicited complaint: sore throat and nasal congestion Related Data Home Medications Medication Instructions Recorded Confirmed epinephrine 0.3 mg/0.3 mL 0.3 ml subcut PRN PRN Anaphylaxis 05/18/23 05/18/23 injection, auto-injector escitalopram oxalate 5 mg tablet 5 mg PO DAILY 05/18/23 05/18/23 Allergies Allergy/AdvReac Type Severity Reaction Status Date / Time bee pollen Allergy Severe Anaphylaxis Verified 05/18/23 18:18 fexofenadine AdvReac Intermediate Redness of Verified 05/18/23 18:18 Skin Review of Systems Review of Systems: Pertinent positives per HPI. Patient denies any rash, visual changes, dizziness, shortness of breath, chest pain, palpitations, vomiting, diarrhea, constipation, abdominal pain, or any urinary issues. 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 Obesity Smoker Family History Family History Other No significant family history Social History Social History Smoking status: Former smoker Tobacco type: cigarettes Second hand tobacco smoke exposure: No Additional smoking assessment comments: Social Smoker - Nothing consistent Alcohol intake: never Substance use: never Living arrangements: with family Occupation/Education: occupation Gender identity (if verbalized by the patient): Female Spiritual care concerns: No Agree to blood products: Yes Comments At the time of my signature, I reviewed and agree with the nursing past medical, surgical, social, and family history. There is no relevant family history pertinent to the patient complaint. Exam Narrative: General: Well-developed, well nourished, in no apparent distress Head: Normocephalic, atraumatic Eyes: Pupils equally round and reactive to light bilaterally, EOM intact, sclera and conjunctive clear, no discharge, lids normal Ears: TMs intact and congested, ear canals clear, no drainage, grossly hearing normal. Nose: Nares patent,clear nasal discharge, no inflammation, no sinus tenderness. Mouth: Oral pharynx red without lesions or masses, good dentition, MMM. Neck: Supple, trachea midline, mild enlargement of anterior cervical nodes, no thyroid masses or goiter palpable. Cardio: Regular rate and rhythm, s1 and s2 normal, no murmur appreciated. Resp: Clear to auscultation bilaterally, no rhonchi, rales, wheezing or rubs Course Course Emergency Course: Portions of this record may have been created with voice recognition software. Level of Care: Express Care Visit Vital Signs Vital signs: Vital signs reviewed MDM - URI/Sore Throat MDM Narrative Medical decision making narrative: At the time of visit patient is resting comfortably on the exam table. Patient appears to be nontoxic. Labs: Strep test was positive. COVID and influenza testing was negative. Plan: Will place patient on amoxicillin. Work note was given. Supportive measures were discussed with the patient and they voiced understanding discharge instructions and agrees to treatment plan. Return precautions reviewed Differential Diagnosis Differential diagnosis: Likely upper respiratory infection, otitis media, sinusitis, viral infection, bronchitis, influenza, pharyngitis and other (COVID) Discharge Plan Discharge Clinical Impression: Acute streptococcal pharyng
[2023-05-18 17:43] VITALS: BP 130/81; PULSE 101; RESP 16; TEMP 37; O2SAT 100
== END 2023-05-18 18:17 | disposition home or self-care (01) ==
PROVIDERS: Emergency Provider Nurse Practitioner Family
DX: J02.0 Streptococcal pharyngitis (principal); Z87.891 Personal history of nicotine dependence; E66.9 Obesity, unspecified; Z68.31 Body mass index [BMI] 31.0-31.9, adult
CPT/HCPCS: 87804; 87880; 99213; G0463

== ENCOUNTER 2023-06-09 15:43 | Emergency (ER) | payer OTHER, SELFPAY ==
--- NOTE | 2023-06-09 15:52 | ED.GENADULT ---
HPI - General Adult General Chief complaint: Upper Respiratory Infection Stated complaint: sorethroat Source: patient, RN notes reviewed and old records reviewed Mode of arrival: ambulatory Limitations: no limitations History of Present Illness HPI narrative: 38-year-old female presents to [facility] with complaints of sore throat, myalgia, fatigue that started Thursday. Patient states he is worried she has strep throat. Patient was positive for strep began May patient states symptoms resolved but then returned. Related Data Home Medications Medication Instructions Recorded Confirmed epinephrine 0.3 mg/0.3 mL 0.3 ml subcut PRN PRN Anaphylaxis 05/18/23 06/09/23 injection, auto-injector escitalopram oxalate 5 mg tablet 5 mg PO DAILY 05/18/23 06/09/23 Allergies Allergy/AdvReac Type Severity Reaction Status Date / Time bee pollen Allergy Severe Anaphylaxis Verified 06/09/23 15:48 fexofenadine AdvReac Intermediate Redness of Verified 06/09/23 15:48 Skin Review of Systems Constitutional: Constitutional: Reports no additional constitutional complaints, Reports body ache(s), Denies chills, Reports fatigue, Denies fever(s) and Denies headache(s) Eyes: Eyes: Reports no additional eye complaints and Denies blurry vision ENT: Reports system reviewed and no additional complaints, except as documented, Denies vertigo, Denies dizziness, Denies ear discharge, Denies otalgia, Denies facial pain, Denies headache(s), Denies nasal congestion, Denies nasal discharge, Denies sinus pain, Denies sinus pressure and Reports sore throat Cardiovascular: Cardiovascular: Reports no additional cardiovascular complaints, Denies chest pain, Denies chest pain at rest, Denies rapid heart rate and Denies dyspnea Respiratory: Respiratory: Reports no additional respiratory complaints, Denies chest congestion, Denies cough, Denies pain on inspiration, Denies pain with cough and Denies dyspnea Gastrointestinal: Gastrointestinal: Denies abdominal pain, Denies diarrhea, Denies nausea and Denies vomiting Integumentary/Breasts: Skin/Breast: Denies rash Neurologic: Reports system reviewed and no additional complaints, except as documented, Denies vertigo, Denies dizziness and Denies headache(s) Endocrine: Endocrine: Denies fatigue 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 Obesity Smoker Family History Family History Other No significant family history Social History Social History Smoking status: Former smoker Tobacco type: cigarettes Second hand tobacco smoke exposure: No Additional smoking assessment comments: Social Smoker - Nothing consistent Alcohol intake: never Substance use: never Living arrangements: with family Occupation/Education: occupation Gender identity (if verbalized by the patient): Female Spiritual care concerns: No Agree to blood products: Yes Comments At the time of my signature, I reviewed and agree with the nursing past medical, surgical, social, and family history. There is no relevant family history pertinent to the patient complaint. Exam Const: General: cooperative, healthy appearing, no acute distress and well nourished Nutritional Appearance: well nourished Orientation/consciousness: patient oriented x3 Limitations: no limitations HENMT: Head: normal to inspection and normocephalic Ears: external ears normal, TM's normal bilaterally, EAC's normal and mastoids normal Face/Nose/Sinus: normal facial exam Face and sinus: normal facial exam Mouth: Yes Normal oral and palatal mucosa present, Yes oropharynx normal and Yes moist mucous membranes Throat: uvula midline, abnormal tonsil bilateral erythema, exudates and hypertrophy, posterior oropharynx abnormal erythema and no uvular edema Eyes: General: appearance normal
[2023-06-09 15:54] VITALS: BP 136/85; PULSE 93; RESP 16; TEMP 36.8; O2SAT 100
== END 2023-06-09 16:07 | disposition home or self-care (01) ==
PROVIDERS: Emergency Provider Registered Nurse; PCP Family Medicine
DX: J02.0 Streptococcal pharyngitis (principal); Z87.891 Personal history of nicotine dependence
CPT/HCPCS: 87880; 99213; G0463

== ENCOUNTER 2024-12-29 14:24 | Emergency (ER) | payer OTHER, SELFPAY ==
--- NOTE | ~2024-12-29 | XR_ITS ---
EXAMINATION: XR forearm RT 2V DATE: 12/29/2024 14:49 INDICATION: Mid ulnar-sided right forearm pain post fall TECHNIQUE: AP an lateral views of the right forearm were obtained. COMPARISON: none FINDINGS: Alignment is normal. No fracture. Joint spaces are normal. Soft tissues are unremarkable. No right elbow joint effusion. IMPRESSION: 1. Negative right forearm radiographs Reviewed, dictated and finalized at location A.
--- OUTSIDE RECORDS SUMMARY | 2024-12-29 14:30 | XMS_ITS | Clinical Summary ---
Author Organization [facility] Address [address] [place] [id number] Care Team Providers Care Upper Doubler Name Role Phone Unavailable Primary Care Provider Unavailabl e Allergies Active Allergy Reactions Criticality Noted Date Comments Fexofenadine Swelling 07/03/2017 Social History Tobacco Use Types Packs/Day Years Used Date Smoking Tobacco: Never Smokeless Tobacco: Never Alcohol Use Standard Drinks/Week Comments Yes 0 (1 standard drink = 0.6 oz pur e alcohol) occaionally Comments No Sex and Gender Information Value Date Recorded Sex Assigned at Not on file Legal Sex Female 9:30 AM CDT Gender Identity Not on file Sexual Orientation Not on file Last Filed Vital Signs Vital Sign Reading Time Taken Comments Blood Pressure 115/81 07/03/2017 11:45 AM CDT Pulse 113 07/03/2017 9:34 AM CDT Temperature 37.6 C (99.7 F) 07/03/2017 9:34 AM CDT Respiratory Rate 16 07/03/2017 11:4 5 AM CDT Oxygen Saturation 99% 07/03/2017 11: 45 AM CDT Inhaled Oxygen Concentration - - Weight 78.8 kg (173 lb 12.8 oz) 07/03/2017 9:34 AM CDT Height 157.5 cm (5' 2) 07/03/2017 9:34 AM CDT Body Mass Index 31.79 07/03/2017 9:34 AM CDT Plan of Treatment Health Maintenance Due Date Last Done Comments Cervical Cancer Screening Pa p Smear (Age 30 to 64) Every 3 Years 1986 Annual Physical 1989 Hepatitis C 2004 DTaP, Tdap and Td Vaccines ( 1 - Tdap) 2005 Hepatitis B Vaccines (1 of 3 - 19+ 3-dose series) 2005 HPV Vaccines (1 - 3-dose SCD M series) 2013 Cervical Cancer Screening Pa p with HPV Testing (Age 30 to 64) Every 5 Years 2016 Cervical Cancer Screening with HPV 2016 COVID-19 Vaccine (2023-2 5 season) 2024 Meningococcal B Vaccine Aged Out No l onger eligible based on patient's age to complete this topic Meningococcal Vaccine Aged Out No jeane armida eligible based on patient's age to complete this topic Pneumococcal Vaccine: Pediat rics (0 to 5 Years) and At-Risk Patients (6 to 49 Years) Aged Out No longer eligible b ased on patient's age to complete this topic RSV Immunizations Under 20 Months Aged Out No longer eligible based on patient's age to complete this topic Insurance [facility]
--- OUTSIDE RECORDS SUMMARY | 2024-12-29 14:30 | XMS_ITS | Clinical Summary ---
Author Organization [facility] [employer] Address [address] [place] [address] Care Team Providers Care Zanjero Name Role Phone Unavailable Primary Care Provider Unavailabl e Source Comments [facility],non-owned Affiliates and Associated Physician Practices is amultiple site organization consisting of ambulatory clinics and hospital sitesin [place], [place], [place] and [place]. This disclosure is being madepursuant to the Care Everywhere program and may not contain all information available regarding this patient. Last updated 18.[facility] [employer] Allergies No known active allergies Medications * Be aware that medications may not be up to date on this document. Alwaysverify current medications with the patient. Vit-Fe Fumarate-FA ( VITAMIN) 28-0.8 MG tabletIndicati ons: Take 1 tablet by mouth once daily Reasons: Active Glucagon (BAQSIMI ONE PACK) 3 MG/DOSE POWD Capac 3 mg into the nose as needed 1 Each 1 1 Active Insulin Pen Needle 32G X 4 MM MISC Use 1 Each 3 times daily 100 Each 4 1 Active loratadine (CLARITIN) 10 MG tablet Take 10 mg by mouth once daily Active insulin lispro (HUMALOG) 100 UNIT/ML vialIndication s:Gestational Diabetes Inject 6-8 Units subcutaneously Patient not taking insulin with breakfast r/t low sugars 60-70's 1:15 units with meals. Reasons: Diabetes During Active insulin detemir (LEVEMIR) pen Inject 62 (sixty two) Units to 80 (eighty) Units subcutaneously as directed Start with 10 units in morning; 52 units in evening. 5 Pen 1 1 Active Additional Information Patient taking differently:62-80 Units Subcutaneous DIRECTED,Start with 10 units in morning; 46 units in evening., Reported on 10/30/2020 aspirin (ASPIRIN) 81 MG chew tablet Take 81 mg by mouth once daily Active Active Problems Problem Noted Date Diagnosed Date History of gestational hyper tension with current proteinuria 07/11/2020 Overview (10/31/2020): 10/03/20: 3500ml urine; Total urine protein 455 mg/24 hr; random protein- creatinine ratio 0.19; urine culture negative Serum labs 10/15/20: creatinine: 0.8, BUN: 13, ALT: 19. AST: 21. Uric acid: 4.4 H/H: 11.4/34.9. platelets: 272 Primary Ophthalmology Technician reported blood pressures: normotensive with highest value being 127/82, as of 10/17 Assessment & Plan (10/31/2020 10:35 AM CDT): Normotensive at visits with OB and with MFM. Discordance between urine protein creatinine ratio and the 24 hr urine collection. Cannot exclude increased urine protein in the 24 hr sample from the large urine volume collected. Goal is about 2000 cc and Arlette voided closer to 4000 cc. Her random urine protein-creatinine ratio was normal which may suggest the 24 hour collection was skewed from the volume of urine being too large. At risk for the development of a hypertensive disorder of but does not appear to currently have a disorder. Assessment & Plan (10/17/2020 1:18 PM CDT): Labs: 24 hour urine 10/03/20: 455mg. Negative urine culture on 10/03. Serum labs 10/15/20: creatinine: 0.8, BUN: 13, ALT: 19. AST: 21. Uric acid: 4.4 H/H: 11.4/34.9. platelets: 272 Normotensive in office today; and has been for all visits. Primary latex dipper office reports normotensive values in their office as well. Mild dull headache, most days that patient does not treat. Episode of RUQ abdominal pain Thursday and was evaluated at [place], labs appropriate. Pain improved. Reassuring testing. [facility] recommendations: 1. Reviewed diagnostic criteria for preeclampsia, which is: is SBP of 140 or more or DBP of 90 or more on two occasions, at least 4 hours apart. AND 300mg or more per 24 hour urine collection or protein/creatinine ratio of 0.3 or more. Home blood pressure values are not commonly a part of this assessment. I encouraged her to bring her home cuff to her next office visit for comparison. I also offered her a blood pressure cuff in our office for appropriate fitting, she declined. 2. Communicated with primary Ophthalmology Technician's office, Marcy; she confirmed no current blood pressure elevations noted in her record. She planned to search her chart for the hospital and update us. Discussed that Dr. Iqbal states at this time without both elevated blood pressure on two separate occasions plus the Demonstrated proteinuria, the diagnosis of preeclampsia is not affirmed. 3. I encouraged prompt obstetrical evaluation for worsening headache, return of RUQ abdominal pain, scotomata, decreased movement, sudden swelling. Encouraged treatment of headache at home, to aid assessment if presents for worsening headache. Discussed not to exceed > 3 grams of Tylenol daily. 4. Recommend weekly visit with obstetrical provider with home blood pressure log review. 5. Continue testing as twice weekly NST and weekly BPP, driven by diabetes. 6. There can be other contributing factors to proteinuria in the 3rd trimester outside of preeclampsia; no prior 24 hour urine is available for review. Early onset of GDM vs. Prediabetes also could be an added risk for proteinuria in 3rd trimester. 7. If preeclampsia is confirmed-- Changes in serum laboratory tests or persistent severe features of preeclampsia are more objective criteria to make the diagnosis of severe preeclampsia. In certain patients there is a role for outpatient/ ambulatory management of preeclampsia without severe features. The goal of delivery is 37 weeks, but may be changed due to onset of severe features after 34 weeks or other concerning findings. Assessment & Plan (10/03/2020 11:19 AM CDT): 1+ protein on urine dipstick today with complaints of intermittent headache for 1-2 weeks, new onset of nausea, and decreased movement pattern for the last week. Reassuring testing yesterday. Diastolic blood pressure increased from baseline values today, B/p: 110/83. [facility] recommendations: 1. Call placed to primary Ophthalmology Technician with above assessment findings. Patient instructed to go to L/D at [facility] for preeclampsia labs, 24 hour urine, monitoring. All orders per primary Ophthalmology Technician. 2. Patient reports she is being seen by Ophthalmology Technician weekly at this time. If diagnosis of preeclampsia is made, or gestational hypertension, please send supporting records. 3. We again reviewed importance of seeking prompt evaluation with decreased movement, worsening or persisting preeclampsia symptoms. Alert Ophthalmology Technician promptly if home blood pressures equal to or greater than 140/90. Assessment & Plan (07/11/2020 5:49 PM CDT): Normotensive currently. Denies history of chronic hypertension. Denies history of preeclampsia. MFM recommendations: 1. Arlette appears to be at increased risk of preeclampsia. I recommend aspirin prophylaxis for prevention. The current recommended regimen is 2 low dose tablets daily [162 mg daily dose], starting between 12-13 weeks gestation until now. Obesity affecting 07/11/2020 Assessment & Plan (08/08/2020 4:33 PM CDT): 3 pound interval weight gain. Normotensive. MFM recommendations: 1. Limit weight gain to 0-15 pounds. Active weight loss is not encouraged. 2. Reviewed healthy dietary choices again today. 3. Serial fetral growth ultrasounds. 4. testing driven by GDM. Assessment & Plan (07/11/2020 5:52 PM CDT): Prepregnancy BMI: 32. MFM recommendations: 1. Limit weight gain to 0-15 pounds. Active weight loss is not encouraged. 2. Reviewed healthy dietary choices today with patient with CDE and myself. 3. Serial fetral growth ultrasounds. 4. testing driven by GDM. Supervision of high-risk of mauro nguyen 07/10/2020 Overview (07/11/2020): Datinw u/s summary: O+/Rubella Immune/Hep B surface antigen NR/RPR NR/ HIV not given Antibody screen: negative HCV: NR, GC/CT: negative, HPV: negative, cellularity not provided. AFP screen: normal. NIPT: LR male. H/H/P: 12.4/35.9/349 Insulin controlled gestation al diabetes mellitus (GDM) in third trimester 07/09/2020 Assessment & Plan (10/31/2020 10:36 AM CDT): Recent decreasing insulin needs since 'stomach bug'. Last EFW on 10/29 [2846 g] with improvement in AC percentile but still with mild polyhydramnios. We discussed the morbidity associated with delivery prior to 39 weeks in the setting of GDM. We also discussed the risk of developing a hypertensive disorder and the multiple factors involved in recommendations for timing of delivery. We discussed the predictive performance of testing. Recommendations 1. Will decrease insulin to carb ratio--see Diebetic Nurse Educator 1. Decrease levemir to 6 units am/ 40 units pm 1. Humalog 0 units with breakfast/ 1:20 carb ratio with lunch and dinner 2. Continue to send diary and logs weekly for review to the Diabetic Nurse Educator 3. Twice weekly nonstress tests and twice weekly BPP 1. Will ask Primary OB to add a BPP to the NST encounter on Fridays 4. Delivery initiation in the 39th week 1. If continues to have decreased insulin needs, concerns for placental dysfunction or has abnormal surveillance then delivery prior to 39 weeks may be indicated 5. encouraged 6. Would benefit from weight loss 7. Diabetes testing 4-5 weeks after delivery with review at 6 week visit Assessment & Plan (10/17/2020 1:12 PM CDT): ?pre-diabetes with early onset of GDM Few elevated post prandial glucoses today. Compliant with current insulin regimen and carb counting. growth 10/01: EFW: 85%, AC: 95%. Reassuring testing today. MFM recommendations: 1. Perform 4 times daily blood glucose measurements 2. Close contact with our fashion design professor to optimize glycemic control on at least once weekly basis through emailing glucose logs. After hours emergency number reviewed to call if she has any hypoglycemia. 3. Insulin: Continue morning Levemir at 10 units in the morning, and 52 units at bedtime. Instructed on carb counting and carb ratios previously. Continue carb counting with insulin ratio: one unit of humalog for every 10 carbs with breaskfast, and one unit for every 7 carbs with lunch and dinner. 4. Recommend repeating HgA1c with next set of labs with primary Ophthalmology Technician. 5. Serial ultrasounds for growth every 4 weeks, recommend to do with MFM. 6. Treatment of hypoglycemia reviewed and after hours emergency number. 7. Twice weekly surveillance starting at 32 weeks, completing with MFM and primary Ophthalmology Technician. 8. Encouraged twice daily kick counts and to seek obstetrical evaluation promptly with decreased movement. Reiterated importance of prompt evaluation with decreased movement. 9. Delivery initiation at 39 weeks unless indicated sooner based on maternal or indications. 10. Recommend 2 hour GTT to be done at 4 weeks PP and reviewed at 6 wk PP exam. Assessment & Plan (10/03/2020 11:13 AM CDT): Few elevated post prandial glucoses today. Compliant with current insulin regimen. Motivated and making strong dietary changes. Improved growth pattern yesterday, EFW: 85%, AC: 95%. Mild polyhydramnios. Reassuring testing yesterday. Complaints of decreased movement for the past week. MFM recommendations: 1. Perform 4 times daily blood glucose measurements 2. Close contact with our fashion design professor to optimize glycemic control on at least once weekly basis through emailing glucose logs. After hours emergency number reviewed to call if she has any hypoglycemia. 3. Insulin: Continue morning Levemir at 10 units in the morning, and 52 units at bedtime. Instructed on carb counting and carb ratios previously. Plan to do one unit of humalog for every 10 carbs with breaskfast, and one unit for every 7 carbs with lunch and dinner. 4. Serial ultrasounds for growth every 4 weeks, recommend to do with MFM. 5. Treatment of hypoglycemia reviewed and after hours emergency number. 6. Twice weekly surveillance starting at 32 weeks, completing with MFM and primary Ophthalmology Technician. 7. Encouraged twice daily kick counts and to seek obstetrical evaluation promptly with decreased movement. Reiterated importance of prompt evaluation with decreased movement. Sent to L/D at [facility] today for prolonged monitoring per primary Ophthalmology Technician. Further orders per primary OB group. 8. Close surveillance for gestational hypertension and preeclampsia. 9. Recommend 2 hour GTT to be done at 4 weeks PP and reviewed at 6 wk PP exam. Assessment & Plan (09/05/2020 12:15 PM CDT): Elevated post prandial glucoses today as well as sporadic fasting elevations Compliant with current insulin regimen. Motivated and making strong dietary changes. Accelerated growth per preliminary report today with mild polyhydramnios. MFM recommendations: 1. Perform 4 times daily blood glucose measurements 2. Close contact with our fashion design professor to optimize glycemic control on at least once weekly basis through emailing glucose logs. After hours emergency number reviewed to call if she has any hypoglycemia. 3. Insulin: Continue morning Levemir at 10 units in the morning, and increase to 44 units at bedtime. Instructed on carb counting and carb ratios today. Plan to do one unit for every 10 carbs with lunch, and one unit for every 7 carbs with dinner. 4. Serial ultrasounds for growth every 4 weeks, recommend to do with MFM. 5. Reviewed accelerated growth today and encouraged her continued compliance with meal checks, carb counting and consistency of carbs with meals, and following diet. We also discussed mild polyhydramnios and labor precautions were reiterated. 6. Treatment of hypoglycemia reviewed and after hours emergency number. 7. Twice weekly surveillance starting at 32 weeks. 8. Encouraged twice daily kick counts and to seek obstetrical evaluation promptly with decreased movement. 9. Close surveillance for gestational hypertension and preeclampsia. 10. Recommend 2 hour GTT to be done at 4 weeks PP and reviewed at 6 wk PP exam. Assessment & Plan (08/08/2020 4:31 PM CDT): Improved glucose control overall today, especially with fasting glucoses. Compliant with current insulin regimen. Motivated and making strong dietary changes. 3+ ketones today with minimum carbohydrate with lunch. Denies hypoglycemia or nausea/vomiting. AGA growth per preliminary report today. MFM recommendations: 1. Perform 4 times daily blood glucose measurements 2. Close contact with our fashion design professor to optimize glycemic control on at least once weekly basis through emailing glucose logs. After hours emergency number reviewed to call if she has any hypoglycemia. 3. Insulin : Increase morning Levemir to 10 units in the morning, and continue 32 units at bedtime. Continue 6 units of Log with dinner, if eating a heavy carbohydrate meal may increase to 8 units. 4. Serial ultrasounds for growth every 4 weeks, recommend to do with MFM. 5. Encouraged increased carbohydrates with lunch and discussed importance of adequate carbohydrates as well. 6. Treatment of hypoglycemia reviewed and 7. Twice weekly surveillance starting at 32 weeks. Discuss with primary OB location of future testing. 8. Close surveillance for gestational hypertension and preeclampsia. 9. Recommend 2 hour GTT to be done at 4 weeks PP and reviewed at 6 wk PP exam. Assessment & Plan (07/11/2020 5:52 PM CDT): Fasting and post prandial hyperglycemia noted. Compliant with current insulin regimen. Motivated and making strong dietary changes. Having difficulty getting enough carbohydrates into her regimen. AGA growth. MFM recommendations: 1. Perform 4 times daily blood glucose measurements 2. Close contact with our fashion design professor to optimize glycemic control on at least once weekly basis through emailing glucose logs. After hours emergency number reviewed to call if she has any hypoglycemia. 3. Insulin : change to Levemir, and start 8 units in the morning and 16 units at bedtime. Discussed it may take some time for her glucoses to reflect this change, and may take increasing in one week as well. 4. Serial ultrasounds for growth every 4 weeks. 5. Twice weekly surveillance starting at 32 weeks. Discuss with primary OB location of future testing. 6. Close surveillance for gestational hypertension and preeclampsia. 7. Recommend 2 hour GTT to be done at 4 weeks PP and reviewed at 6 wk PP exam. Resolved Problems Problem Noted Date Diagnosed Date Resolved Date Polyhydramnios, antepartum complication 03/18/2019 08/08/2020 Family History Medical History Relation Name Comments Cancer - Skin, Non Melanoma Father Diabetes; unknown type Father Cancer Maternal Grandmother Diabetes; unknown type Paternal Grandfather Relation Name Status Comments Father Maternal Grandmother Paternal Grandfather Social History Tobacco Use Types Packs/Day Years Used Date Smoking Tobacco: Former Cigarettes 0.3 18.7 2 002 - 12/2019 Smokeless Tobacco: Never Alcohol Use Standard Drinks/Week Comments Not Currently 0 (1 standard drink = 0.6 oz pur e alcohol) Comments No Sex and Gender Information Value Date Recorded Sex Assigned at Not on file Legal Sex Female 1:53 PM TAR CHASER Gender Identity Not on file Sexual Orientation Not on file Last Filed Vital Signs Vital Sign Reading Time Taken Comments Blood Pressure 120/78 11/05/2020 3:36 PM CDT Pulse 98 11/05/2020 3:36 PM CDT Temperature 36.1 C (96.9 F) 07/11/2020 10:35 AM CDT Respiratory Rate - - Oxygen Saturation - - Inhaled Oxygen Concentration - - Weight 91.4 kg (201 lb 9.6 oz) 10/31/2020 9:16 A M CDT Height 157.5 cm (5' 2) 07/11/2020 10:35 AM CDT Body Mass Index 36.87 07/11/2020 10:35 AM CDT Plan of Treatment Health Maintenance Due Date Last Done Comments HEPATITIS C SCREENING 05/23/2004 DTAP/TDAP/TD VACCINES (1 - Tdap) 2005 HEPATITIS B VACCINE (1 of 3 - 19+ 3-dose series) 2005 HPV VACCINE (1 - 3-dose SCDM series) 2013 DEPRESSION SCREENING 04/13/2024 COVID-19 VACCINE (3 - 2024-2 6 season) 2024 07/05/2020, 05/31/2020 INFLUENZA VACCINE (#1) 2024 02/25/2019 ZOSTER VACCINE (1 of 2) 2036 HIV SCREENING Completed 09/03/2020 HIB VACCINE Aged Out No longer eligi ble based on patient's age to complete this topic MENINGOCOCCAL (Group B) VACCINE SHARED DECISION-MAKING Aged Out No longer eligible based on patient's age to complete this topic MENINGOCOCCAL GROUPS A/C/Y/W VACCINE Aged Out No longer eligible b ased on patient's age to complete this topic PNEUMOCOCCAL VACCINE Aged Out No long er eligible based on patient's age to complete this topic Insurance [facility]
--- OUTSIDE RECORDS SUMMARY | 2024-12-29 14:30 | XMS_ITS | Clinical Summary ---
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 2 each 3 3 Active ALPRAZolam (XANAX) 0.25 mg tabletIndication s:Adjustment disorder with mixed anxiety and depressed mood Take 1 tablet (0.25 mg total) by mouth 3 (three) times a day as needed for anxiety 28 tablet 5 Active escitalopram (LEXAPRO) 5 mg tabletIndication s:Adjustment disorder with mixed anxiety and depressed mood TAKE 1 TABLET(5 MG) BY MOUTH DAILY 90 tablet 3 5 Active tirzepatide, weight loss, (Zepbound) 10 mg/0.5 mL pen injectorIndicati ons:Class 1 obesity due to excess calories without serious comorbidity with body mass index (BMI) of 32.0 to 32.9 in adult Inject 10mg under the skin weekly. 6 mL 1 5 Active Active Problems Problem Noted Date Diagnosed Date Flexural eczema 07/11/2024 Assessment & Plan (07/11/2024 7:56 AM CDT): Eczema She experiences eczema flare-ups on her toes and fingers, for which she uses clobetasol ointment as needed. 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 She has a prescription for Xanax, which she uses very rarely as a rescue medication, primarily for work-related stress. 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 A controlled substance contract was reviewed and signed to ensure compliance with regulations. - Continue Escitalopram (Lexapro) 5 mg oral daily - Sign controlled substance contract for alprazolam - Schedule follow-up in six months for alprazolam prescription review Controlled Substance Agreement reviewed with patient in office. Signed by patient. [place] PDMP reviewed. No suspicious activity. Patient understands risks of use of medication. Assessment & Plan (10/01/2023 10:44 AM CDT): Chronic, stable, but a side effect Will stop lexapro Will start celexa- slightly more weight neurtral Continue healthy changes for her mood Call if s/sx worsen or do not improve Call for questions Assessment & Plan (03/12/2023 8:51 AM BANDSAW OPERATOR): New, but may be chronic Will start lexapro 5 mg daily Will give her xanax to use as needed for panic-reviewed safety with the medication take medication as directed discussed side effects of medication with patient encouraged healthy diet and exercise encouraged patient to see a counselor use support structures you have in place consider meditation-look at Calm anders try to work on healthy sleep habits If mood worsens or changes, please contact the office Contact 911 and go to the ER if becomes suicidal Assessment & Plan (01/15/2023 2:56 PM CDT): Reviewed medication- she is wanting to hold off for now Continue healthy changes to boost mood- exercise, healthy diet, using support structures that are in place, and good sleep habits If mood worsens or changes, please contact the office If her mood worsens, we can start medication Anything emergent, to the er Call for questions or concerns Bee sting allergy 01/15/2023 Overview (01/15/2023): will re-new epi pen Dermatitis 04/08/2022 Physical exam, annual 11/29/2019 Overview (01/15/2023): Reviewed healthy lifestyle changes including a lower carbohydrate diet, and moderate activity 150 minutes weekly. We also reviewed wearing sunscreen, using seatbelts with driving, and not taking mind alternating substances driving. Health maintenance: Last Pap: Through gynecology Last Tdap: Up-to-date Last COVID: Encouraged Last influenza: Encouraged Assessment & Plan (07/11/2024 7:56 AM CDT): General Health Maintenance She had recent blood work with excellent results. 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 She underwent a duct excision, and recommend starting annual mammograms at age 40 unless new symptoms arise. - Begin annual mammograms at age 40 unless new symptoms arise - Continue routine health maintenance and screenings - Continue healthy diet/exercise Assessment & Plan (01/15/2023 2:06 PM CDT): Reviewed healthy lifestyle changes including a lower carbohydrate diet, and moderate activity 150 minutes weekly. We also reviewed wearing sunscreen, using seatbelts with driving, and not taking mind alternating substances driving. Health maintenance: Last Pap: Through gynecology Last Tdap: Up-to-date Last COVID: Encouraged Last influenza: Encouraged Assessment & Plan (11/29/2019 2:48 PM CDT): Work on healthy low carb diet Healthy activity for 30 minutes daily Wear sun screen, seat belts No texting/drinking and driving Health Maintenance: Last PAP: 09/2018 Last mammogram: @41 Last DEXA: @61 Last colonoscopy/cologuard: @46 Last Tdap: 04/2019 Last pneumonia/Prevnar: @66 Last Shingrix:@51 Last Flu: yearly History of gestational diabetes 11/29/2019 Assessment & Plan (11/29/2019 2:49 PM CDT): Will check labs Class 1 obesity due to exces s calories without serious comorbidity with body mass index (BMI) of 31.0 to 31.9 in adult 11/29/2019 Assessment & Plan (01/11/2024 2:41 PM CDT): Patient has been doing well with Zepbound. Just finished 1st month of 2.5 mg. Is down about 11 lb on her scale. No side effects reported. Would like to increase. Zepbound 5 mg weekly for the next 4 weeks sent to pharmacy. Discussed ongoing titration schedule each month Patient will message via [employer] after her next month if she would like to proceed with increasing to 7.5 mg Assessment & Plan (12/08/2023 1:31 PM CDT): Patient continues to struggle with weight despite diligent diet and exercise attempts. She is interested in weight loss medication. Discussed options including GLP 1 medication. No history of pancreatitis. No history of medullary thyroid cancers in the family. We will start Zepbound. Discussed titration schedule and common side effects. Patient will reach out to our office with any concerns. Assessment & Plan (10/01/2023 10:44 AM CDT): Chronic, worse BMI Follow-up includes: continue healthy changes . Assessment & Plan (01/15/2023 2:22 PM CDT): BMI Follow-up includes: nutrition counseling. Assessment & Plan (11/29/2019 3:11 PM CDT): BMI Follow-up includes: nutrition counseling. Resolved Problems Problem Noted Date Diagnosed Date Resolved Date Pre-eclampsia 10/05/2020 01/11/2024 Overview (01/11/2024): MFM does not agree with pre-eclampsia dx. 24hr 455 at 32 weeks, but NL BPs/labs. Pt scheduled with Dr. Burris on 10/31 to confirm dx and discuss delivery plan. Polyhydramnios, antepartum complication 03/18/2019 09/12/2021 Insulin controlled gestation al diabetes mellitus (GDM) in third trimester 03/17/20192023 Overview (01/11/2024): 10/03 - [facility] mgmt - Humalog B-1u/15g, L-1u/5g D-1u/15g; Levemir 10 units AM & 46 units HS Encounters Date Type Department Care Team Description 12/21/[address] [facility] Family Medicine [address] [phone] Edith Moncada PA from Last 3 Months Immunizations Immunization Administration Dates Next Due DTaP 08/26/2007, 2,12/17/1988,11/29,1986,1986 HPV, Quadrivalent 08/26/2007,04/21/2006 Hep A, Adult 08/24/2007 Hep B, Adolescent or Pediatric 01/06/1998,1997 Hep B, Unspecified 08/14/2001,03/23/2001, 001 Influenza, Trivalent, IM (MDV) 01/22/2021 Influenza, Unspecified 01/12/2024,2022(Deferred: Patient Refused),01/11/2023,02/09/2022, 019 MMR 10/06/1991,12/17/1988 Meningococcal Polysaccharide (Menomune) 08/24/2007 Polio, Unspecified 10/03/1991, 9,1986,08/07,1986 Tdap 09/04/2020,02/25/2019 Tetanus toxoid, adsorbed 09/01/2004 Surgical History Surgery Date Site/Laterality Comments LASIK Feb 2022 BREAST SURGERY July 2022 Medical History Medical History Date Comments Motion sickness Insulin controlled gestation al diabetes mellitus (GDM) in third trimester 03/17/201910/03 - [facility] mgmt - Humalog B- 1u/15g, L-1u/5g D-1u/15g; Levemir 10 units AM & 46 units HS Pre-eclampsia 10/05/2020 MFM does not agr ee with pre-eclampsia dx. 24hr 455 at 32 weeks, but NL BPs/labs. Pt scheduled with Dr. Burris on 10/31 to confirm dx and discuss delivery plan. Family History Medical History Relation Name Comments Hyperlipidemia Father Cain Melanoma Father Cain Cancer Maternal Grandfather Cancer Maternal Grandmother Va No Known Problems Mother Diabetes Paternal Grandfather Cain Heart disease Paternal Grandfather Cain Dementia Paternal Grandmother Relation Name Status Comments Brother 1 Alive Brother 2 Alive Father Cain Alive Maternal Grandfather Maternal Grandmother Va Mother Alive Paternal Grandfather Cain Paternal Grandmother Alive Sister Alive Social History Tobacco Use Types Packs/Day Years Used Date Smoking Tobacco: Some Days Cigarettes 0.3 22.7 Started: 2002 Tobacco Cessation:Ready to Q uit: Not Asked; Counseling Given: Not Answered Comments:Stopped 11/24/19 Alcohol Use Standard Drinks/Week Comments Yes 0 (1 standard drink = 0.6 oz pur e alcohol) 5 weekly AUDIT-C Answer Date Recorded Q1: How often do you have a drink containing alc ohol? Monthly or less 07/11/2024 Q2: How many drinks containi ng alcohol do you have on a typical day when you are drinking? 1 or 2 07/11/2024 Q3: How often do you have si x or more drinks on one occasion? Never 07/11/2024 PHQ-2 Answer Date Recorded PHQ-2 Total Score (If total score is 3 or more points, staff should administer the PHQ-9) 0 07/11/2024 PHQ-9 Answer Date Recorded PHQ-9 Total Score 2 07/11/2024 Personal Safety Answer Date Recorded Have you ever been in or are you currently in a harmful physical or emotional relationship or is someone making you feel afraid or unsafe? 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 Not on file Not on file Obstetrics History Last Filed Vital Signs Vital Sign Reading Time Taken Comments Blood Pressure 110/70 07/11/2024 7:25 AM CDT Pulse 100 07/11/2024 7:25 AM CDT Temperature 36.1 C (97 F) 07/11/2024 7:25 AM CDT Respiratory Rate 16 07/11/2024 7:25 AM CDT Oxygen Saturation 98% 07/11/2024 7:25 AM CDT Inhaled Oxygen Concentration - - Weight 65 kg (143 lb 6.4 oz) 07/11/2024 7:25 AM CDT Height 156.2 cm (5' 1.5) 07/11/2024 7:25 AM CDT Body Mass Index 26.66 07/11/2024 7:25 AM CDT Plan of Treatment Health Maintenance Due Date Last Done Comments Pneumococcal vaccine <65 (1 of 2 - PCV) 2005 HPV Vaccines (3 - 3-dose series) 11/18/2007 08/26/19 08, 04/21/2006 Covid-19 Vaccine (5 - 2024-2 6 season) 2024 03/24/2023, 01/22/2021, 07/05/2020, Additional history exists Influenza Vaccine (#1) 2024 , 01/11/2023, 02/09/2022, Additional history exists Cervical Cancer Screening 04/21/2025 04/21/2020 Depression Screening 07/11/2025 07/11/2024, 07/11/2024, 05/19/2024, Additional history exists Regular Well Visit/Exam 18-64 07/11/2025, 01/15/2023, 01/15/2023, Additional history exists DTaP/Tdap/Td Vaccine (8 - Td or Tdap) 09/04/2030 09/04/2020, 02/25/2019, 08/26/2007, Additional history exists Hepatitis B Screening Completed 08/14/2001 , 03/23/2001, 02/09/2001, Additional history exists Hepatitis C Screening Completed 07/07/2024 Varicella Vaccines Discontinued Procedures Procedure Name Priority Date/Time Associated Diagnosis Comments HEPATITIS C ANTIBODY Routine 07/07/2024 6:25 AM CDT Need for hepatitis C screening test HM PAP SMEAR WITH HPV Routine 04/21/2020 from Last 3 Months or Most Recently Relevant to Health Maintenance Results * Hepatitis C antibody Blood (07/07/2024 6:25 AM CDT) Hep C Ab NON-REACTI VE NON-REACT [facility]BEK[facility] Comment: HCV antibody was non-reactive. There is no laboratory evidence of HCV infection. In most cases, no further action is required. However, if recent HCV exposure is suspected, a test for HCV RNA (test code 51915) is suggested. For additional information please refer to http://education.Petrabytes/faq/IUZ06d8 (This link is being provided for informational/ educational purposes only.) Blood 07/07/2024 6:25 AM CDT 07/07/2024 6:26 AM CDT Narrative [facility] - 07/08/2024 4:03 AM CDT FASTING:YES FASTING: YES Lexus Manzano MD LAB MICROBIOLOGY - GENERAL ORDERABLES Final Result [facility] [id number] [address] [phone] * HM PAP SMEAR WITH HPV (04/21/2020) us Historical Provider HEALTH MAINTENANCE Final Result from Last 3 Months or Most Recently Relevant to Health Maintenance Insurance [address] [place] [id number] [facility] CHOICE PLUS [facility]/PPO Address: [place] [address] [place] [address] [employer] [place] [phone] Advance Directives For more information, please contact: [phone] * Full Code (Latest Code Status on File) Date Activated Date Inactivated Comments 07/23/2022 9:18 AM 07/23/2022 3:01 PM Care Teams Automotive Production Worker Relationship Specialty Start Date End Date Edith Moncada PA [address] [place] [address] PCP - General Family Medicine 07/11/24
[2024-12-29 14:31] VITALS: BP 115/77; PULSE 89; RESP 18; TEMP 36.6; O2SAT 100
--- NOTE | 2024-12-29 14:38 | ED_ITS ---
HPI - Extremity Injury (Upper) General Chief Complaint: Extremity Injury, Upper Stated Complaint: Fall / RT Arm injury Time Seen by Provider: 12/29/24 14:38 Source: patient Mode of arrival: ambulatory Limitations: no limitations History of Present Illness HPI narrative: 39 yo F presents with pain and swelling to R forearm. Tripped coming out of school and fell forward onto arm. ROM and distal NV intact. all systems reviewed and negative except as noted above. Related Data Home Medications ?Medication ?Instructions ?Recorded ?Confirmed ?Last Taken ?Type epinephrine 0.3 mg/0.3 mL 0.3 ml subcut PRN PRN Anaphy laxis 05/18/23 06/09/23 Unknown History injection, auto-injector escitalopram oxalate 5 mg tablet 5 mg PO DAILY 4 06/09/23 Unknown History tirzepatide (weight loss) 10 mg subcut 12/29/24 Unkno wn History mg/0.5 mL subcutaneous pen injector (Zepbound) Allergies Allergy/AdvReac Type Severity Reaction Status Date / Time bee pollen Allergy Severe Anaphylaxis Verified 12/29/24 14:31 fexofenadine AdvReac Intermediate Redness of Verified 12/29/24 14:31 Skin 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 Obesity Smoker Family History Family History Other No significant family history Social History Social History Smoking status: Former smoker Tobacco type: cigarettes Second hand tobacco smoke exposure: No Additional smoking assessment comments: Social Smoker - Nothing consistent Alcohol intake: never Substance use: never Living arrangements: with family Occupation/Education: occupation Gender identity (if verbalized by the patient): Female Spiritual care concerns: No Agree to blood products: Yes Comments At time of signature, agree with nursing past medical, surgical, social and family history. There is no relevant family history pertinent to the presenting complaint. Exam Narrative: GENERAL: This is a well-nourished, well-developed patient, in no apparent distress. HEAD: normocephalic, atraumatic. EYES: PERRL. Sclera clear/white. Vision is grossly intact. EARS: External ears normal NOSE: External nose normal NECK: Neck supple, non-tender without lymphadenopathy, masses or thyromegaly. CARDIOVASCULAR: Regular rate and rhythm without murmurs, gallops, or rubs. RESPIRATORY: Clear to auscultation. Breath sounds equal bilaterally. No wheezes, rales, or rhonchi. SKIN: warm, Dry, intact with no suspicious lesions or rash, good texture and turgor. NEURO: awake, alert, and oriented to person, place and time. There were no obvious focal neurologic abnormalities. EXTREMITIES: Bruising and swelling to mid forearm lateral aspect. Mid ulnar tenderness. No deformity noted. Course Course Level of Care: Express Care Visit Vital Signs Vital signs: Vital Signs Temperature 36.6 C 12/29/24 14:31 Pulse Rate 89 12/29/24 14:31 Respiratory Rate 18 12/29/24 14:31 Blood Pressure 115/77 12/29/24 14:31 Pulse Oximetry 100 12/29/24 14:31 Oxygen Delivery Room Air 12/29/24 14:31 Temperature 36.6 C 12/29/24 14:31 Pulse Rate 89 12/29/24 14:31 Respiratory Rate 18 12/29/24 14:31 Blood Pressure 115/77 12/29/24 14:31 Pulse Oximetry 100 12/29/24 14:31 Oxygen Delivery Room Air 12/29/24 14:31 reviewed MDM - Extremity Injury (Upper) MDM Narrative Medical decision making narrative: neg x-ray. discussed with pt. Recommend rest, ice, elevation. See PCP as needed. patient well-appearing. Imaging Data My impression: Agree with radiologist Radiologist's impression: EXAMINATION: XR forearm RT 2V DATE: 12/29/2024 14:49 INDICATION: Mid ulnar-sided right forearm pain post fall TECHNIQUE: AP an lateral views of the right forearm were obtained. COMPARISON: none FINDINGS: Alignment is normal. No fracture. Joint spaces are normal. Soft tissues are unremarkable. No right elbow joint effusion. IMPRESSION: 1. Negative right forearm radiographs Discharge Plan Discharge Clinical Impression: Contusion of forearm, right Patient Disposition: Home Condition: Stable Instructions: Contusion in Children (ED) Additional Instructions: the x-ray of your right forearm was negative for fracture. Take ibuprofen or Tylenol every 6-8 hours as needed for pain. Apply ice as needed for pain. Keep elevated when at rest. See your doctor as needed. Patient Language: Bruneian Prescriptions: No Action escitalopram oxalate 5 mg tablet 5 mg PO DAILY epinephrine 0.3 mg/0.3 mL auto-injector 0.3 ml subcut PRN PRN (Reason: Anaphylaxis) Rx Instructions: as a single dose; may repeat once Zepbound 10 mg/0.5 mL pen injector SUBCUT Follow-up/Referrals: Lauren Moncada RN [Primary Care Provider, Nursing] Time of Disposition: 15:02
== END 2024-12-29 15:05 | disposition home or self-care (01) ==
PROVIDERS: Emergency Provider Nurse Practitioner Family
DX: S50.11XA Contusion of right forearm, initial encounter (principal); W01.0XXA Fall on same level from slipping, tripping and stumbling without subsequent striking against object, initial encounter; E66.9 Obesity, unspecified; Z68.23 Body mass index [BMI] 23.0-23.9, adult
CPT/HCPCS: 73090; 99213; G0463